=== PATIENT | female | born 1960 | race American Indian/Alaskan Native ===

== ENCOUNTER 2019-04-23 08:33 | Emergency (ER) | payer OTHER ==
[2019-04-23] MEDS ORDERED: DUONEB *Not for PRN Use IH ONE (09:38)
[2019-04-23] MEDS ORDERED: DECADRON PO ONE (09:38)
--- NOTE | 2019-04-23 09:42 | Emergency Department Report ---
HPI - General Chief Complaint: Syncope Time Seen by Provider: 04/23/19 09:31 - HPI HPI: 59-year-old -[place] female presents to the emergency department via EMS from her residential drug/alcohol treatment center after having a witnessed syncopal episode. The patient was eating some breakfast and says that she felt like she was choking on food and then woke up with people standing over her and the ambulance on its way. There is no report of the patient actually choking on her food requiring any type of Heimlich maneuver. Since being in the emergency department, the patient is awake and alert with no significant complaints. She has a past medical history of COPD and hypertension. She is a tobacco smoker. She says that she is 130 days sober from drugs and alcohol. No recent travel or sick contacts at home. She goes to [facility] for primary care. ED Past Medical Hx - Past Medical History Hx Hypertension: Yes Hx Psychiatric Treatment: Yes Hx Asthma: Yes Hx COPD: Yes Additional medical history: Alcoholism,depression - Surgical History Additional Surgical History: tubal ligation/ bunion - Social History Smoking Status: Current Every Day Smoker Substance Use Type: None - Medications Home Medications: Home Medications Medication Instructions Recorded Confirmed Last Taken Type Cyclobenzaprine [Flexeril] 10 mg PO TID PRN #30 tablet 10/16/15 Unknown Rx Ibuprofen [Motrin 600 MG tab] 600 mg PO Q8H PRN #50 tablet 12/12/15 Unknown Rx traMADol [Ultram 50 MG tab] 50 mg PO Q6HR PRN #20 tablet 12/12/15 Unknown Rx Albuterol Sulfate [Albuterol 0.63% 0.63 mg IH Q4HR PRN #2 ml 05/29/16 Unknown Rx NEBS] Albuterol Sulfate [Proair 90 mcg IH Q4HR PRN #2 aer.pow.ba 05/29/16 Unknown Rx Respiclick] Ipratropium [place] [Atrovent Hfa] 12.9 gm IH Q4HR #2 hfa.aer.ad 05/29/16 Unk nown Rx Ipratropium [Atrovent NEB] 0.5 mg IH Q4HR #2 ml 05/29/16 Unknown Rx predniSONE [Deltasone] 40 mg PO QDAY #8 tab 05/29/16 Unknown Rx ED Review of Systems ROS: Stated complaint: PASSED OUT/SOB/NOSE BLEED Other details as noted in HPI Comment: All other systems reviewed and negative Constitutional: denies: chills, fever Eyes: denies: eye pain, vision change ENT: denies: ear pain, throat pain Respiratory: cough (chronic), wheezing Cardiovascular: syncope. denies: chest pain Gastrointestinal: denies: abdominal pain, vomiting Genitourinary: denies: dysuria, discharge Musculoskeletal: denies: back pain, arthralgia Skin: denies: rash, lesions Neurological: denies: headache, numbness Physical Exam - Physical Exam Vital Signs: Vital Signs 04/23/19 08:57 Temperature 98.4 F Pulse Rate 97 H Respiratory 16 Rate Blood Pressure 137/83 [Right] O2 Sat by Pulse 96 Oximetry Physical Exam: GENERAL: The patient is well-developed well-nourished. HENT: Normocephalic. Atraumatic. Patient has moist mucous membranes. EYES: Extraocular motions are intact. Pupils equal reactive to light bilaterally. No nystagmus. NECK: Supple. Trachea is midline. CHEST/LUNGS: Mild expiratory wheezing. No tachypnea or accessory muscle use. There is no respiratory distress noted. HEART/CARDIOVASCULAR: Regular. There is no tachycardia. There is no murmur. ABDOMEN: Abdomen is soft, nontender. Patient has normal bowel sounds. There is no abdominal distention. SKIN: Skin is warm and dry. NEURO: The patient is awake, alert, and oriented. The patient is cooperative. The patient has no focal neurologic deficits. The patient has normal speech. Cranial nerves II through XII grossly intact. No pronator drift. No dysmetria. MUSCULOSKELETAL: There is no tenderness or deformity. There is no limitation range of motion. There is no evidence of acute injury. ED Course Vital Signs 04/23/19 08:57 Temperature 98.4 F Pulse Rate 97 H Respiratory 16 Rate Blood Pressure 137/83 [Right] O2 Sat by Pulse 96 Oximetry ED Medical Decision Making - Lab Data Result diagrams: 04/23/19 09:47 04/23/19 09:47 - EKG Data -: EKG Interpreted by Me EKG shows normal: sinus rhythm, axis, intervals, QRS complexes, ST-T waves Rate: normal - EKG Data When compared to previous EKG there are: previous EKG unavailable Interpretation: normal EKG - Radiology Data Radiology results: report reviewed, image reviewed interpreted by me: Chest x-ray does not show any acute process. There are no pleural effusions, obvious pneumonia and there is no pneumothorax. CT angiography of the chest does not show any pulmonary embolus, dissection, aneurysm, or any other acute process. - Medical Decision Making This patient presents to the emergency department after having a witnessed syncopal episode. Since being in the emergency department, the patient is awake, alert, oriented, in no acute distress, and with no physical complaints. On examination she has no focal, motor or sensory deficits in her cranial nerves are intact. She is a tobacco smoker with a history of COPD and does have some mild expiratory wheezing but no signs of any respiratory distress. She was given a dose of Decadron and a breathing treatment. Her EKG did not show any signs of ST elevation [place], ischemia or dysrhythmia. Chest x-ray did not show any pleural effusions, pneumonia, focal consolidation, pneumothorax, or any other acute process. Her labs were grossly unremarkable except for a slightly elevated and to political d-dimer at 280. Otherwise she had a normal CBC, metabolic panel, troponin, thyroid level, blood alcohol level. She had a CT angiography of the chest that did not show any pulmonary embolism or any other acute process. She was reevaluated multiple times for multiple hours and has remained awake and alert without any further episodes of passing out. Since there was the one syncopal episode, and she does not have any deficits, I did not feel that CT imaging of the head was necessary at this time. Her vital signs and stable throughout her ED course. For all these reasons, the patient appears safe for discharge home at this time. She has been instructed to follow up with primary care and to return to the ER with any worsening of her symptoms or any acute distress. - Differential Diagnosis orthostatic hypotension, vasovagal, TIA, dysrhythmia, PE Critical Care Time: No Critical care attestation.: If time is entered above; I have spent that time in minutes in the direct care of this critically ill patient, excluding procedure time. ED Disposition Clinical Impression: Tobacco use Syncope Qualifiers: Syncope type: unspecified Qualified Code(s): R55 - Syncope and collapse Disposition: DC- TO HOME OR SELFCARE Is pt being admited?: No Condition: Stable Instructions: How to Stop Smoking (ED), Syncope (ED) Additional Instructions: Please follow-up with your primary care physician in the next few days. Return to the emergency department with any further episodes of passing out, worsening of your symptoms, or with any acute distress. Please try and quit smoking. Referrals: [facility] [Outside] - 3-5 Days Time of Disposition: 13:43
[2019-04-23 10:34] LABS: Basophils % (Auto) 0.3 % (0.0-1.8); Eosinophils # (Auto) 0.3 K/mm3 (0.0-0.4); Eosinophils % (Auto) 4.1 % (0.0-4.3); Hematocrit 39.9 % (30.3-42.9); Hemoglobin 13.4 gm/dl (10.1-14.3); Lymphocytes # (Auto) 2.3 K/mm3 (1.2-5.4); Lymphocytes % (Auto) 29.4 % (13.4-35.0); Mean Corpuscular HGB Conc 34 % (30-34); Mean Corpuscular Volume 85 fl (79-97); Monocytes # (Auto) 0.5 K/mm3 (0.0-0.8); Monocytes % (Auto) 5.9 % (0.0-7.3); Platelet Count 278 K/mm3 (140-440); Red Blood Count 4.72 M/mm3 (3.65-5.03)
--- NOTE | 2019-04-23 10:49 | XRay Report ---
CHEST 2 VIEWS INDICATION / CLINICAL INFORMATION: Cough. Syncope COMPARISON: Chest x-ray 05/29/2016 FINDINGS: SUPPORT DEVICES: None. HEART / MEDIASTINUM: No significant abnormality. LUNGS / PLEURA: No significant pulmonary or pleural abnormality. No pneumothorax. ADDITIONAL FINDINGS: No significant additional findings. IMPRESSION: 1. No acute findings. Signer Name: Merrill Dale MD Signed: 04/23/2019 10:45 AM Workstation Name: [id number]
[2019-04-23 10:55] LABS: Alanine Aminotransferase 19 units/L (7-56); Albumin 4.3 g/dL (3.9-5); BUN/Creatinine Ratio 12; Blood Urea Nitrogen 12 mg/dL (7-17); Calcium 9.2 mg/dL (8.4-10.2); Hemolysis Index 4
--- NOTE | 2019-04-23 12:30 | Cat Scan Report ---
CTA CHEST WITH IV CONTRAST INDICATION / CLINICAL INFORMATION: Dizziness, Syncope. TECHNIQUE: Axial CT images were obtained through the chest after injection of IV contrast. 3 plane MIP and/or 3D reconstructions were produced. All CT scans at this location are performed using CT dose reduction f or ALARA by means of automated exposure control. COMPARISON: Same-day chest radiograph FINDINGS: PULMONARY ARTERIES: No pulmonary emboli. THORACIC AORTA: No significant abnormality. HEART: No significant abnormality. CORONARY ARTERIES: No significant calcification. PLEURA: No pleural effusion. No pneumothorax. LYMPH NODES: No significant adenopathy. LUNGS: No acute air space or interstitial disease. ADDITIONAL FINDINGS: None. UPPER ABDOMEN: No acute findings. SKELETAL STRUCTURES: No significant osseous abnormality. IMPRESSION: 1. No CT evidence for pulmonary embolism. 2. No acute findings. Signer Name: Arnold Jackman MD Signed: 04/23/2019 12:25 PM Workstation Name: [id number]
[2019-04-23 13:10] VITALS: BP 138/77
== END 2019-04-23 13:18 | disposition home or self-care (01) ==
LOC: ED 08:33
DX: R55 Syncope and collapse (principal); I10 Essential (primary) hypertension; J44.9 Chronic obstructive pulmonary disease, unspecified; F17.200 Nicotine dependence, unspecified, uncomplicated; F32.9 Major depressive disorder, single episode, unspecified; Z98.51 Tubal ligation status; Z79.899 Other long term (current) drug therapy
CPT/HCPCS: 36415; 71046; 71275; 80053; 84443; 84484; 85025; 85379; 93005; 93010; 94644; 99285; J8540; Q9967; 80320; G0480

== ENCOUNTER 2019-09-14 09:00 | Inpatient (IN) | payer OTHER ==
[2019-09-14] MEDS ORDERED: ALBUTEROL 2.5 MG/3 ML NEBU IH ONE ×3 (14:11→21:52)
[2019-09-14] MEDS ORDERED: IPRATROPIUM 0.02% NEBU 2.5 ML IH ONE ×3 (14:11→21:52)
[2019-09-14] MEDS ORDERED: methylPREDNISolone Sod Succinate 125 MG/2 ML INJ IV ONE (17:26)
[2019-09-14] MEDS ORDERED: IBUPROFEN 800 MG TAB PO ONE (17:27)
--- NOTE | 2019-09-14 17:41 | Event Note ---
ED Screening Note ED Screening Note: 59 YO AA female who comes to ER with SOB. She has a/c COPD and asthma and her SOB has inc over the last 3 days. She also endorses chills and diarrhea. She did not get a flu shot this year but denies muscle pain or myalgia. She has had yellow sputum. PCP [facility] Rx ventolin advair singular zantac wellbutrin serquqel PMH COPD asthma Gerd anxiety/MD she has been clean from alcohol for 9 months. PSH tubal bunion surgery years ago Prior to my exam she had a neb but is still wheezing plan 06/20 neb xray basic labs solumedrol IV repeat Vs then reevaluate
--- NOTE | 2019-09-14 17:55 | XRay Report ---
CHEST 1 VIEW 09/14/2019 5:27 PM INDICATION / CLINICAL INFORMATION: Shortness of breath. COMPARISON: Chest x-ray on 04/23/2019. FINDINGS: SUPPORT DEVICES: None. HEART / MEDIASTINUM: No significant abnormality. LUNGS / PLEURA: No significant pulmonary or pleural abnormality. No pneumothorax. ADDITIONAL FINDINGS: No significant additional findings. IMPRESSION: 1. No acute findings. Signer Name: Shola Mcnamara MD Signed: 09/14/2019 5:50 PM Workstation Name: [id number]
[2019-09-14 18:23] LABS: Basophils % (Auto) 0.2 % (0.0-1.8); Hematocrit 44.4 % (30.3-42.9); Hemoglobin 14.7 gm/dl (10.1-14.3); Lymphocytes # (Auto) 1.7 K/mm3 (1.2-5.4); Lymphocytes % (Auto) 18.1 % (13.4-35.0); Mean Corpuscular HGB Conc 33 % (30-34); Mean Corpuscular Volume 86 fl (79-97); Monocytes # (Auto) 0.7 K/mm3 (0.0-0.8); Monocytes % (Auto) 8.1 % (0.0-7.3); Platelet Count 205 K/mm3 (140-440); Red Blood Count 5.19 M/mm3 (3.65-5.03); Red Cell Distribution Width 16.5 % (13.2-15.2)
[2019-09-14] MEDS ORDERED: ACETAMINOPHEN 325 MG TAB PO ONE (18:34)
--- NOTE | 2019-09-14 18:34 | Emergency Department Report ---
HPI - General Chief Complaint: Dyspnea/Respdistress Time Seen by Provider: 09/14/19 18:11 - HPI HPI: 59-year-old female presents to the emergency department from home with complaint of a three-day history of shortness of breath, wheezing and a mixed dry and productive cough. Patient has a history of COPD but is not oxygen dependent. She also has a history of asthma, GERD, hypertension. She's been using some home inhaler and nebulizer without any relief. 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 Patient presents with a very low-grade fever and says that she has felt feverish over the past few days with some chills. No recent travel or sick contacts at home. She denies any chest pain, lower extremity edema. Patient is a tobacco smoker but says that she quit 3 days ago. ED Past Medical Hx - Past Medical History Previous Medical History?: Yes Hx Hypertension: Yes Hx GERD: Yes Hx Psychiatric Treatment: Yes Hx Asthma: Yes Hx COPD: Yes Additional medical history: Alcoholism,depression - Surgical History Past Surgical History?: Yes Additional Surgical History: tubal ligation/ bunion - Social History Smoking Status: Former Smoker Substance Use Type: None - Medications Home Medications: Home Medications Medication Instructions Recorded Confirmed Last Taken Type Cyclobenzaprine [Flexeril] 10 mg PO TID PRN #30 tablet 10/16/15 09/14/19 Unknown Rx Ibuprofen [Motrin 600 MG tab] 600 mg PO Q8H PRN #50 tablet 12/12/15 09/14/19 Unknown Rx traMADoL [Ultram 50 MG tab] 50 mg PO Q6HR PRN #20 tablet 12/12/15 09/14/19 Unknown Rx Albuterol Sulfate [Albuterol 0.63% 0.63 mg IH Q4HR PRN #2 ml 05/29/16 09/14/19 Unknown Rx NEBS] Albuterol Sulfate [Proair 90 mcg IH Q4HR PRN #2 aer.pow.ba 05/29/16 09/14/19 Unknown Rx Respiclick] Ipratropium [place] [Atrovent Hfa] 12.9 gm IH Q4HR #2 hfa.aer.ad 05/29/16 09/14/19 Unknown Rx Ipratropium [Atrovent NEB] 0.5 mg IH Q4HR #2 ml 05/29/16 09/14/19 Unknown Rx predniSONE [Deltasone] 40 mg PO QDAY #8 tab 05/29/16 09/14/19 Unknown Rx ED Review of Systems ROS: Stated complaint: JAIME Other details as noted in HPI Comment: All other systems reviewed and negative Constitutional: chills, fever Eyes: denies: eye pain, vision change ENT: denies: ear pain, throat pain Respiratory: cough, shortness of breath, wheezing Cardiovascular: denies: chest pain, palpitations Gastrointestinal: denies: abdominal pain, vomiting Genitourinary: denies: urgency, dysuria Musculoskeletal: denies: back pain, arthralgia Skin: denies: rash, lesions Neurological: denies: headache, weakness Physical Exam - Physical Exam Vital Signs: Vital Signs 09/14/19 09/14/19 09:31 09:36 Temperature 100.3 F H Pulse Rate 93 H Respiratory 16 16 Rate Blood Pressure 101/53 O2 Sat by Pulse 88 96 Oximetry Physical Exam: GENERAL: The patient is well-developed well-nourished. HEENT: Normocephalic. Atraumatic. Patient has moist mucous membranes. EYES: Extraocular motions are intact. NECK: Supple. Trachea is midline CHEST/LUNGS: Moderate wheezing throughout the chest. There is a dry cough heard during examination. Tachypnea but no accessory muscle use. No conversational dyspnea. There is no respiratory distress noted. HEART/CARDIOVASCULAR: Regular. There is no tachycardia. ABDOMEN: Abdomen is soft, nontender. Patient has normal bowel sounds. There is no abdominal distention. SKIN: Skin is warm and dry. NEURO: The patient is awake, alert, and oriented. The patient is cooperative. Normal speech. MUSCULOSKELETAL: There is no tenderness or deformity. There is no evidence of acute injury. ED Course Vital Signs 09/14/19 09/14/19 09:31 09:36 Temperature 100.3 F H Pulse Rate 93 H Respiratory 16 16 Rate Blood Pressure 101/53 O2 Sat by Pulse 88 96 Oximetry - ABG Interpretation Ph: [phone] PCO2: 32 PO2: 56 Bicarbonate: 21 Interpretation: other (hypoxemia) ED Medical Decision Making - Lab Data Result diagrams: 09/14/19 17:48 09/14/19 17:48 - Radiology Data Radiology results: image reviewed interpreted by me: Chest x-ray does not show any pneumonia, pneumothorax, focal consolidation, pleural effusions, or any other acute process. - Medical Decision Making This patient presents with a three-day history of some shortness of breath, wheezing and a mixed dry and productive cough. Chest x-ray did not show any pleural effusions, pneumonia, or any other acute process. Blood work shows some acute kidney injury/renal insufficiency. Arterial blood gas show some hypoxemia. The patient does not appear in any respiratory distress but she is not oxygen dependent at home and is requiring supplemental oxygen by nasal cannula. For this reason the patient will be admitted to the hospital for further evaluation and treatment and was accepted for admission by the hospitalist, Dr. Turner. - Differential Diagnosis COPD, Pneumonia, CHF, Asthma Critical Care Time: No Critical care attestation.: If time is entered above; I have spent that time in minutes in the direct care of this critically ill patient, excluding procedure time. ED Disposition Clinical Impression: COPD exacerbation, Hypoxemia, Acute kidney injury Disposition: OP ADMIT IP TO THIS HOSP Is pt being admited?: Yes Condition: Fair Time of Disposition: 21:22
[2019-09-14 18:37] LABS: Albumin 4.2 g/dL (3.9-5)
[2019-09-14] MEDS ORDERED: SODIUM CHLORIDE 0.9% 1000 ML 1,000 ML IV ONE (18:58)
[2019-09-14] MEDS ORDERED: ACETAMINOPHEN 325 MG TAB ONE (21:09)
[2019-09-14] MEDS ORDERED: MAGNESIUM HYDROXIDE (MOM) ORAL LIQD UDC PO PRN (22:09)
[2019-09-14] MEDS ORDERED: ACETAMINOPHEN 325 MG TAB PO PRN (22:09)
[2019-09-14] MEDS ORDERED: ONDANSETRON 4 MG/2 ML INJ IV PRN (22:09)
[2019-09-14] MEDS ORDERED: MORPHINE 2 MG/1 ML INJ IV PRN (22:09)
[2019-09-15] MEDS: methylPREDNISolone Sod Succinate 40 MG/1 ML INJ IV SCH ×5 (00:18→23:48)
--- NOTE | 2019-09-15 03:24 | History and Physical Report ---
History of Present Illness Date of examination: 09/14/19 Date of admission: 09/14/19 21:23 Chief complaint: Shortness of breath Cough History of present illness: 59-year-old female with known history of COPD presenting to the emergency room today complaining of shortness of breath and cough which has been ongoing for about 3 days. She has also had some low-grade fever and chills. She denies any sick contacts and no recent travel. She denies any chest pain and denies any nausea vomiting. She follows up with a private home health travel pt. She indicates her cough has been productive of some greenish to yellowish sputum. Upon arrival in the emergency room a chest x-ray did not reveal any acute abnormality however she was found to be hypoxic. She has not been on oxygen at home. Patient indicates that she quit tobacco use about 3 days ago. Past History Past Medical History: COPD, hypertension Past Surgical History: Other (Bilateral tubal ligation about 35 years ago, surgery on foot for bunion) Social history: smoking (Quit tobacco use 3 days ago) Family history: no significant family history Medications and Allergies Allergies Allergy/AdvReac Type Severity Reaction Status Date / Time No Known Allergies Allergy Verified 12/12/15 13:42 Home Medications Medication Instructions Recorded Confirmed Last Taken Type Cyclobenzaprine [Flexeril] 10 mg PO TID PRN #30 tablet 10/16/15 09/14/19 Unknown Rx Ibuprofen [Motrin 600 MG tab] 600 mg PO Q8H PRN #50 tablet 12/12/15 09/14/19 Unknown Rx traMADoL [Ultram 50 MG tab] 50 mg PO Q6HR PRN #20 tablet 12/12/15 09/14/19 Unknown Rx Albuterol Sulfate [Albuterol 0.63% 0.63 mg IH Q4HR PRN #2 ml 05/29/16 09/14/19 Unknown Rx NEBS] Albuterol Sulfate [Proair 90 mcg IH Q4HR PRN #2 aer.pow.ba 05/29/16 09/14/19 Unknown Rx Respiclick] Ipratropium [place] [Atrovent Hfa] 12.9 gm IH Q4HR #2 hfa.aer.ad 05/29/16 09/14/19 Unknown Rx Ipratropium [Atrovent NEB] 0.5 mg IH Q4HR #2 ml 05/29/16 09/14/19 Unknown Rx predniSONE [Deltasone] 40 mg PO QDAY #8 tab 05/29/16 09/14/19 Unknown Rx Active Meds: Active Medications Acetaminophen (Tylenol) 650 mg PO Q4H PRN PRN Reason: Pain MILD(1-3)/Fever >100.5/INIGUEZ Albuterol/Ipratropium (Duoneb *Not For Prn Use*) 1 ampul IH Q6HRT SHANTI Heparin Sodium (Porcine) (Heparin) 5,000 unit SUB-Q Q8HR SHANTI Levofloxacin/Dextrose (Levaquin 750mg/150ml) 750 mg in 150 mls @ 100 mls/hr IV Q24HR SHANTI; Protocol Magnesium Hydroxide (Milk Of Magnesia) 30 ml PO Q4H PRN PRN Reason: Constipation Methylprednisolone Sodium Succinate (Solu-Medrol) 40 mg IV Q6HR SHANTI Last Admin: 09/15/19 00:18 Dose: 40 mg Documented by: Morphine Sulfate (Morphine) 2 mg IV Q4H PRN PRN Reason: Pain, Moderate (4-6) Ondansetron HCl (Zofran) 4 mg IV Q8H PRN PRN Reason: Nausea And Vomiting Sodium Chloride (Sodium Chloride Flush Syringe 10 Ml) 10 ml IV BID SHANTI Sodium Chloride (Sodium Chloride Flush Syringe 10 Ml) 10 ml IV PRN PRN PRN Reason: LINE FLUSH Review of Systems Constitutional: fever Respiratory: cough with sputum, shortness of breath Exam - Constitutional Vitals: Temp Pulse Resp BP Pulse Ox 98.4 F 94 H 22 138/69 94 09/14/19 21:03 09/14/19 23:00 09/14/19 23:40 09/14/19 23:00 09/14/19 23:40 General appearance: Present: no acute distress - EENT Eyes: Present: PERRL, EOM intact ENT: hearing intact, clear oral mucosa, dentition normal - Neck Neck: Present: supple, normal ROM - Respiratory Respiratory effort: normal Respiratory: bilateral: wheezing - Cardiovascular Rhythm: regular Heart Sounds: Present: S1 & S2 - Extremities Extremities: no ischemia, pulses symmetrical, No edema, Full ROM Peripheral Pulses: within normal limits - Abdominal General gastrointestinal: Present: soft, non-tender, non-distended, normal bowel sounds - Integumentary Integumentary: Present: clear, warm, dry - Musculoskeletal Musculoskeletal: strength equal bilaterally - Psychiatric Psychiatric: appropriate mood/affect, intact judgment & insight, cooperative - Neurologic Neurologic: CNII-XII intact, moves all extremities Results - Labs CBC & Chem 7: 09/15/19 04:53 09/15/19 04:53 Labs: Abnormal lab results 09/14/19 09/14/19 09/14/19 Range/Units 17:48 17:48 19:01 RBC 5.19 H (3.65-5.03) M/mm3 Hgb 14.7 H (10.1-14.3) gm/dl Hct 44.4 H (30.3-42.9) % RDW 16.5 H (13.2-15.2) % M[place]at % (Auto) 8.1 H (0.0-7.3) % Seg Neutrophils % 73.6 H (40.0-70.0) % POC ABG pCO2 32.8 L (35-45) POC ABG pO2 56 L (80-105) Sodium 135 L (137-145) mmol/L Chloride 97.1 L (98-107) mmol/L Carbon Dioxide 19 L (22-30) mmol/L BUN 26 H (7-17) mg/dL Creatinine 1.9 H (0.7-1.2) mg/dL Glucose 101 H (65-100) mg/dL AST 44 H (5-40) units/L Total Protein 8.5 H (6.3-8.2) g/dL Assessment and Plan - Patient Problems (1) COPD exacerbation Current Visit: Yes Status: Acute Plan to address problem: Patient placed on nebulizing treatments and IV steroids. We will keep O2 saturation greater or equal to 92%. We also placed on empiric IV antibiotics for possible underlying bronchitis. She has been placed on Levaquin. (2) Hypoxemia Current Visit: Yes Status: Acute Plan to address problem: Patient was placed on oxygen by nasal cannula will monitor oxygen saturation. We will place a consult to pulmonology for evaluation and recommendation. (3) Hypertension Current Visit: No Status: Acute Plan to address problem: We will continue patient on her routine home medications and monitor vital signs closely. (4) DVT prophylaxis Current Visit: Yes Status: Acute Plan to address problem: Patient placed on subcutaneous heparin. (5) Full code status Current Visit: Yes Status: Acute
[2019-09-15] MEDS: IPRATROPIUM/ALBUTEROL SULFATE 3 ML AMPUL.NEB IH SCH ×4 (03:30→19:58)
[2019-09-15 05:40] LABS: Basophils % (Auto) 0.1 % (0.0-1.8); Hematocrit 40.5 % (30.3-42.9); Hemoglobin 13.6 gm/dl (10.1-14.3); Lymphocytes # (Auto) 0.6 K/mm3 (1.2-5.4); Lymphocytes % (Auto) 8.7 % (13.4-35.0); Mean Corpuscular HGB Conc 34 % (30-34); Mean Corpuscular Volume 85 fl (79-97); Monocytes # (Auto) 0.1 K/mm3 (0.0-0.8); Monocytes % (Auto) 1.9 % (0.0-7.3); Platelet Count 198 K/mm3 (140-440); Red Blood Count 4.77 M/mm3 (3.65-5.03); Red Cell Distribution Width 16.1 % (13.2-15.2)
[2019-09-15] MEDS: HEPARIN 5,000 UNIT/1 ML VIAL SUB-Q SCH ×3 (05:42→22:23)
[2019-09-15 05:55] LABS: INR 0.92 (0.87-1.13)
[2019-09-15 05:56] LABS: Partial Thromboplastin Time 32.7 Sec. (24.2-36.6)
[2019-09-15 06:01] LABS: Calcium 8.6 mg/dL (8.4-10.2)
[2019-09-15] MEDS ORDERED: CYCLOBENZAPRINE 10 MG TAB PO PRN (06:44)
[2019-09-15] MEDS ORDERED: traMADol 50 MG TAB PO PRN (06:44)
[2019-09-15] MEDS: INSULIN LISPRO 100 UNIT/ML SUB-Q SCH ×4 (08:55→22:22)
--- NOTE | 2019-09-15 12:54 | Consultation ---
History of Present Illness Consult date: 09/15/19 Requesting physician: BILL BARRETO Reason for consult: dyspnea History of present illness: 59 yo and long-time smoker, admitted with increased SOB, wheezing, cough with purulent yellow sputum and no hemoptysis, hypoxia. No fevers, chills, chest pain. Active Medications Acetaminophen (Tylenol) 650 mg PO Q4H PRN PRN Reason: Pain MILD(1-3)/Fever >100.5/INIGUEZ Albuterol/Ipratropium (Duoneb *Not For Prn Use*) 1 ampul IH Q6HRT [facility] Last Admin: 09/15/19 07:51 Dose: 1 ampul Documented by: Cyclobenzaprine HCl (Flexeril) 10 mg PO TID PRN PRN Reason: Muscle Spasm Heparin Sodium (Porcine) (Heparin) 5,000 unit SUB-Q Q8HR [facility] Last Admin: 09/15/19 05:42 Dose: 5,000 unit Documented by: Levofloxacin/Dextrose (Levaquin 750mg/150ml) 750 mg in 150 mls @ 100 mls/hr IV Q24HR [facility]; Protocol Insulin Human Lispro (Humalog) 0 unit SUB-Q ACHS [facility]; Protocol Last Admin: 09/15/19 08:55 Dose: 2 unit Documented by: Magnesium Hydroxide (Milk Of Magnesia) 30 ml PO Q4H PRN PRN Reason: Constipation Methylprednisolone Sodium Succinate (Solu-Medrol) 40 mg IV Q6HR [facility] Last Admin: 09/15/19 05:42 Dose: 40 mg Documented by: Morphine Sulfate (Morphine) 2 mg IV Q4H PRN PRN Reason: Pain, Moderate (4-6) Ondansetron HCl (Zofran) 4 mg IV Q8H PRN PRN Reason: Nausea And Vomiting Sodium Chloride (Sodium Chloride Flush Syringe 10 Ml) 10 ml IV BID [facility] Last Admin: 09/15/19 09:29 Dose: 10 ml Documented by: Sodium Chloride (Sodium Chloride Flush Syringe 10 Ml) 10 ml IV PRN PRN PRN Reason: LINE FLUSH Tramadol HCl (Ultram) 50 mg PO Q6H PRN PRN Reason: PAIN Past History Past Medical History: COPD, hypertension Past Surgical History: Other (Bilateral tubal ligation about 35 years ago, surgery on foot for bunion) Social history: smoking (Smoker 40+ years, up to 1ppd, currently 1/2 ppd), full code. denies: alcohol abuse, prescription drug abuse, IV drug use Family history: no significant family history (No pulm issues reported) Medications and Allergies Allergies Allergy/AdvReac Type Severity Reaction Status Date / Time No Known Allergies Allergy Verified 12/12/15 13:42 Home Medications Medication Instructions Recorded Confirmed Last Taken Type Cyclobenzaprine [Flexeril] 10 mg PO TID PRN #30 tablet 10/16/15 09/14/19 Unknown Rx Ibuprofen [Motrin 600 MG tab] 600 mg PO Q8H PRN #50 tablet 12/12/15 09/14/19 Unknown Rx traMADoL [Ultram 50 MG tab] 50 mg PO Q6HR PRN #20 tablet 12/12/15 09/14/19 Unknown Rx Albuterol Sulfate [Albuterol 0.63% 0.63 mg IH Q4HR PRN #2 ml 05/29/16 09/14/19 Unknown Rx NEBS] Albuterol Sulfate [Proair 90 mcg IH Q4HR PRN #2 aer.[email or web address].ba 05/29/16 09/14/19 Unknown Rx Respiclick] Ipratropium [place] [Atrovent Hfa] 12.9 gm IH Q4HR #2 hfa.aer.ad 05/29/16 09/14/19 Unknown Rx Ipratropium [Atrovent NEB] 0.5 mg IH Q4HR #2 ml 05/29/16 09/14/19 Unknown Rx predniSONE [Deltasone] 40 mg PO QDAY #8 tab 05/29/16 09/14/19 Unknown Rx Active Meds: Active Medications Acetaminophen (Tylenol) 650 mg PO Q4H PRN PRN Reason: Pain MILD(1-3)/Fever >100.5/INIGUEZ Albuterol/Ipratropium (Duoneb *Not For Prn Use*) 1 ampul IH Q6HRT [facility] Last Admin: 09/15/19 07:51 Dose: 1 ampul Documented by: Cyclobenzaprine HCl (Flexeril) 10 mg PO TID PRN PRN Reason: Muscle Spasm Heparin Sodium (Porcine) (Heparin) 5,000 unit SUB-Q Q8HR [facility] Last Admin: 09/15/19 05:42 Dose: 5,000 unit Documented by: Levofloxacin/Dextrose (Levaquin 750mg/150ml) 750 mg in 150 mls @ 100 mls/hr IV Q24HR [facility]; Protocol Insulin Human Lispro (Humalog) 0 unit SUB-Q ACHS [facility]; Protocol Last Admin: 09/15/19 08:55 Dose: 2 unit Documented by: Magnesium Hydroxide (Milk Of Magnesia) 30 ml PO Q4H PRN PRN Reason: Constipation Methylprednisolone Sodium Succinate (Solu-Medrol) 40 mg IV Q6HR [facility] Last Admin: 09/15/19 05:42 Dose: 40 mg Documented by: Morphine Sulfate (Morphine) 2 mg IV Q4H PRN PRN Reason: Pain, Moderate (4-6) Ondansetron HCl (Zofran) 4 mg IV Q8H PRN PRN Reason: Nausea And Vomiting Sodium Chloride (Sodium Chloride Flush Syringe 10 Ml) 10 ml IV BID [facility] Last Admin: 09/15/19 09:29 Dose: 10 ml Documented by: Sodium Chloride (Sodium Chloride Flush Syringe 10 Ml) 10 ml IV PRN PRN PRN Reason: LINE FLUSH Tramadol HCl (Ultram) 50 mg PO Q6H PRN PRN Reason: PAIN Review of Systems All systems: negative Physical Examination Vital signs: Vital Signs Temp Pulse Resp BP Pulse Ox 100.3 F H 93 H 16 101/53 88 09/14/19 09:31 09/14/19 09:31 09/14/19 09:31 09/14/19 09:31 09/14/19 09:31 General appearance: no acute distress, alert Eyes: non-icteric ENT: oropharynx moist Neck: supple Effort: normal, other (purulent sputum in emesis basin) Ascultation: Bilateral: wheezes Cardiovascular: regular rate and rhythm (no mrg) Gastrointestinal: normoactive bowel sounds, soft, non-tender, non-distended Integumentary: normal Extremities: no cyanosis, no edema, pink and warm Musculoskeletal: no deformities normal mental status, non-focal exam, pupils equal and round, CN II-XII normal mood appropriate, affect normal Results - Laboratory Findings CBC and BMP: 09/15/19 04:53 09/15/19 04:53 ABG POC ABG pH 7.418 (7.35-7.45) 09/14/19 19:01 POC ABG pCO2 32.8 (35-45) L 09/14/19 19:01 POC ABG pO2 56 (80-105) L 09/14/19 19:01 POC ABG HCO3 21.2 (22-26 mml/L) 09/14/19 19:01 POC ABG Total CO2 22 (23-27mmol/L) 09/14/19 19:01 POC ABG O2 Sat 89 09/14/19 19:01 PT/INR, D-dimer PT 12.5 Sec. (12.2-14.9) 09/15/19 04:53 INR 0.92 (0.87-1.13) 09/15/19 04:53 Abnormal lab findings: Abnormal Labs 09/14/19 09/14/19 09/14/19 17:48 17:48 19:01 RBC 5.19 H Hgb 14.7 H Hct 44.4 H RDW 16.5 H Lymph % (Auto) [place] % (Auto) 8.1 H Lymph # Seg Neutrophils % 73.6 H POC ABG pCO2 32.8 L POC ABG pO2 56 L Sodium 135 L Chloride 97.1 L Carbon Dioxide 19 L BUN 26 H Creatinine 1.9 H Glucose 101 H POC Glucose AST 44 H Total Protein 8.5 H 09/15/19 09/15/19 09/15/19 04:53 04:53 08:36 RBC Hgb Hct RDW 16.1 H Lymph % (Auto) 8.7 L [place] % (Auto) Lymph # 0.6 L Seg Neutrophils % 89.3 H POC ABG pCO2 POC ABG pO2 Sodium Chloride Carbon Dioxide 18 L BUN 23 H Creatinine 1.4 H Glucose 337 H POC Glucose 232 H AST Total Protein 09/15/19 11:38 RBC Hgb Hct RDW Lymph % (Auto) [place] % (Auto) Lymph # Seg Neutrophils % POC ABG pCO2 POC ABG pO2 Sodium Chloride Carbon Dioxide BUN Creatinine Glucose POC Glucose 188 H AST Total Protein - Diagnostic Findings Chest x-ray: report reviewed, image reviewed Assessment and Plan Imp: 1. Acute bronchitis 2. COPD exac. 3. Acute respiratory failure, hypoxia 4. KAMALA 5. Chronic nicotine dependence, cgiarettes 6. Metabolic acidosis Rec: 1. Cont. Levaquin; obtain sputum culture 2. Solumedrol/Duonebs same 3. Gentle IVFs 4. Repeat BMP and check lactate in AM 5. Blood glucose > 300; check HgBa1c 6. Stop smoking 7. Outpatient PFTs Plan of care reviewed with patient, she understands/agrees Thanks for the consult. Will follow with you.
[2019-09-15] MEDS: SODIUM CHLORIDE 0.9% 1000 ML 1,000 ML IV SCH (14:38)
--- NOTE | 2019-09-15 15:38 | Progress Note ---
Assessment and Plan Assessment and plan: Patient is a 59 yo woman with a history of COPD, hypertension and tobacco dependency who presented to [facility] ED with sob and cough. Her pO2 on 2 liters was only 56, hence the admission. * pCXR no acute findings Acute hypoxic respiratory failure, new to o2: continue o2 support and treat the copd AE COPD: treat with neb, abx and iv steriods Tobacco dependency: rehabilitation services counselor on stopping, offered nicotine patch ARF due to vasomotor nephropathy, Cr was 1.9 on admission: treat with ivf now CR 1.4, will repeat Uncontrolled type 2 DM with hyperglycemia complications: treat with insulin, ssi. Obese, bmi 41.1: rehabilitation services counselor on lifestyle modifications DVT ppx: sq heparin History Interval history: Patient was seen and examined. Follow-up on current diagnosis copd. Overnight uneventful as no events directly reported to me. Patient denies any chest pain, nausea/vomiting or severe headaches. Imaging, nursing note, chart, labs and old chart reviewed. Discussed with patient. Hospitalist Physical - Physical exam Narrative exam: Gen: WDWN, NAD, Awake, Alert, Orientated HEENT: NCAT, EOMI, PERRL, OP Clear Neck: supple, no adenopathy, no thyromegaly, no JVD CVS/Heart: RRR, normal S1S2, pulses present bilaterally Chest/Lungs: diminished bs bilateral, Symmetrical chest expansion, good air entry bilaterally GI/Abdomen: soft, NTND, good bowel sounds, no guarding or rebound /Bladder: no suprapubic tenderness, no CVA or paraspinal tenderness Extermity/Skin: no c/c/e, no obvious rash MSK: FROM x 4 Neuro: CN 2-12 grossly intact, no new focal deficits Psych: calm - Constitutional Vitals: Temp Pulse Resp BP Pulse Ox 97.9 F 80 22 143/72 93 09/15/19 12:08 09/15/19 12:08 09/15/19 12:08 09/15/19 12:08 09/15/19 12:08 General appearance: Present: no acute distress Results - Labs CBC & Chem 7: 09/15/19 04:53 09/15/19 04:53 Labs: Laboratory Last Values WBC 6.9 K/mm3 (4.5-11.0) 09/15/19 04:53 RBC 4.77 M/mm3 (3.65-5.03) 09/15/19 04:53 Hgb 13.6 gm/dl (10.1-14.3) 09/15/19 04:53 Hct 40.5 % (30.3-42.9) 09/15/19 04:53 MCV 85 fl (79-97) 09/15/19 04:53 MCH 29 pg (28-32) 09/15/19 04:53 MCHC 34 % (30-34) 09/15/19 04:53 RDW 16.1 % (13.2-15.2) H 09/15/19 04:53 Plt Count 198 K/mm3 (140-440) 09/15/19 04:53 Lymph % (Auto) 8.7 % (13.4-35.0) L 09/15/19 04:53 [place] % (Auto) 1.9 % (0.0-7.3) 09/15/19 04:53 Eos % (Auto) 0.0 % (0.0-4.3) 09/15/19 04:53 Baso % (Auto) 0.1 % (0.0-1.8) 09/15/19 04:53 Lymph # 0.6 K/mm3 (1.2-5.4) L 09/15/19 04:53 [place] # 0.1 K/mm3 (0.0-0.8) 09/15/19 04:53 Eos # 0.0 K/mm3 (0.0-0.4) 09/15/19 04:53 Baso # 0.0 K/mm3 (0.0-0.1) 09/15/19 04:53 Seg Neutrophils % 89.3 % (40.0-70.0) H 09/15/19 04:53 Seg Neutrophils # 6.2 K/mm3 (1.8-7.7) 09/15/19 04:53 PT 12.5 Sec. (12.2-14.9) 09/15/19 04:53 INR 0.92 (0.87-1.13) 09/15/19 04:53 APTT 32.7 Sec. (24.2-36.6) 09/15/19 04:53 POC ABG pH 7.418 (7.35-7.45) 09/14/19 19:01 POC ABG pCO2 32.8 (35-45) L 09/14/19 19:01 POC ABG pO2 56 (80-105) L 09/14/19 19:01 POC ABG HCO3 21.2 (22-26 mml/L) 09/14/19 19:01 POC ABG Total CO2 22 (23-27mmol/L) 09/14/19 19:01 POC ABG O2 Sat 89 09/14/19 19:01 POC ABG Base Excess -3 ((-2) - (+3)mmol/L) 09/14/19 19:01 FiO2 28 % 09/14/19 19:01 Sodium 138 mmol/L (137-145) 09/15/19 04:53 Potassium 4.6 mmol/L (3.6-5.0) 09/15/19 04:53 Chloride 104.2 mmol/L (98-107) 09/15/19 04:53 Carbon Dioxide 18 mmol/L (22-30) L 09/15/19 04:53 Anion Gap 20 mmol/L 09/15/19 04:53 BUN 23 mg/dL (7-17) H 09/15/19 04:53 Creatinine 1.4 mg/dL (0.7-1.2) H 09/15/19 04:53 Estimated GFR 47 ml/min 09/15/19 04:53 BUN/Creatinine Ratio 16 % 09/15/19 04:53 Glucose 337 mg/dL (65-100) H 09/15/19 04:53 POC Glucose 188 (70-105) H 09/15/19 11:38 Calcium 8.6 mg/dL (8.4-10.2) 09/15/19 04:53 Total Bilirubin 0.30 mg/dL (0.1-1.2) 09/14/19 17:48 AST 44 units/L (5-40) H 09/14/19 17:48 ALT 30 units/L (7-56) 09/14/19 17:48 Alkaline Phosphatase 82 units/L (35-129) 09/14/19 17:48 Total Protein 8.5 g/dL (6.3-8.2) H 09/14/19 17:48 Albumin 4.2 g/dL (3.9-5) 09/14/19 17:48 Albumin/Globulin Ratio 1.0 % 09/14/19 17:48 Influenza A (Rapid) Negative (Negative) 09/14/19 21:19 Influenza B (Rapid) Negative (Negative) 09/14/19 21:19 Active Medications - Current Medications Current Medications: Generic Name Dose Route Start Last Admin Trade Name Freq PRN Reason Stop Dose Admin Acetaminophen 650 mg 09/14/19 22:09 Tylenol PO Q4H PRN Pain MILD(1-3)/Fever >100.5/INIGUEZ Albuterol/Ipratropium 1 ampul 09/15/19 02:00 09/15/19 14:36 Duoneb *Not For Prn Use* IH 1 ampul Q6HRT SHANTI Administration Cyclobenzaprine HCl 10 mg 09/15/19 06:44 Flexeril PO TID PRN Muscle Spasm Heparin Sodium (Porcine) 5,000 unit 09/15/19 06:00 09/15/19 14:18 Heparin SUB-Q 5,000 unit Q8HR SHANTI Administration Levofloxacin/Dextrose 750 mg in 150 mls @ 100 mls/hr 09/16/19 10:00 Levaquin 750mg/150ml IV Q24HR [facility]I Protocol Sodium Chloride 1,000 mls @ 42 mls/hr 09/15/19 13:00 09/15/19 14:38 Nacl 0.9% 1000 Ml IV 42 mls/hr DIRECT SHANTI Administration Insulin Human Lispro 0 unit 09/15/19 07:30 09/15/19 14:15 Humalog SUB-Q 1 unit ACHS SH[facility]I Administration Protocol Magnesium Hydroxide 30 ml 09/14/19 22:09 Milk Of Magnesia PO Q4H PRN Constipation Methylprednisolone Sodium Succinate 40 mg 09/15/19 00:00 09/15/19 14:18 Solu-Medrol IV 40 mg Q6HR SHANTI Administration Morphine Sulfate 2 mg 09/14/19 22:09 Morphine IV Q4H PRN Pain, Moderate (4-6) Ondansetron HCl 4 mg 09/14/19 22:09 Zofran IV Q8H PRN Nausea And Vomiting Sodium Chloride 10 ml 09/15/19 10:00 09/15/19 09:29 Sodium Chloride Flush Syringe 10 Ml IV 10 ml BID SHANTI Administration Sodium Chloride 10 ml 09/14/19 22:09 Sodium Chloride Flush Syringe 10 Ml IV PRN PRN LINE FLUSH Tramadol HCl 50 mg 09/15/19 06:44 Ultram PO Q6H PRN PAIN
[2019-09-15] MEDS ORDERED: HEPARIN 5,000 UNIT/1 ML VIAL SUB-Q SCH (15:45)
[2019-09-16] MEDS: IPRATROPIUM/ALBUTEROL SULFATE 3 ML AMPUL.NEB IH SCH ×4 (01:58→20:45)
[2019-09-16] MEDS: methylPREDNISolone Sod Succinate 40 MG/1 ML INJ IV SCH ×3 (05:25→23:30)
[2019-09-16] MEDS: INSULIN LISPRO 100 UNIT/ML SUB-Q SCH ×4 (08:28→22:13)
[2019-09-16] MEDS: HEPARIN 5,000 UNIT/1 ML VIAL SUB-Q SCH ×2 (09:47→22:12)
[2019-09-16 09:56] LABS: BUN/Creatinine Ratio 14; Blood Urea Nitrogen 13 mg/dL (7-17); Calcium 8.6 mg/dL (8.4-10.2); Hemolysis Index 2
[2019-09-16] MEDS: SODIUM CHLORIDE 0.9% 1000 ML 1,000 ML IV SCH (12:19)
--- NOTE | 2019-09-16 14:19 | Progress Note ---
Assessment and Plan mp: 1. Acute bronchitis 2. COPD exac. 3. Acute respiratory failure, hypoxia 4. KAMALA 5. Chronic nicotine dependence, cgiarettes 6. Metabolic acidosis Rec: 1. Cont. Levaquin; sputum culture pending 2. Solumedrol/Duonebs same, taper steroids 3. Gentle IVFs 4. Repeat BMP and check lactate in AM 5. Blood glucose > 300; check HgBa1c 6. Stop smoking 7. Outpatient PFTs Subjective Date of service: 09/16/19 Interval history: Patient reports cough and breathing has improved Objective Vital Signs - 12hr 09/16/19 09/16/19 09/16/19 02:20 04:56 05:19 Temperature 98.3 F 98.3 F Pulse Rate 84 84 Pulse Rate [ 95 H Anterior Bilateral Throughout] Pulse Rate [ Posterior Throughout] Respiratory 20 20 Rate Respiratory 20 Rate [Anterior Bilateral Throughout] Respiratory Rate [Posterior Throughout] Blood Pressure 143/77 Blood Pressure 143/77 [Left] O2 Sat by Pulse 96 96 Oximetry 09/16/19 09/16/19 10:00 12:16 Temperature 98.0 F Pulse Rate 81 Pulse Rate [ 82 Anterior Bilateral Throughout] Pulse Rate [ 82 Posterior Throughout] Respiratory 22 Rate Respiratory 20 Rate [Anterior Bilateral Throughout] Respiratory 20 Rate [Posterior Throughout] Blood Pressure 142/71 Blood Pressure [Left] O2 Sat by Pulse 96 93 Oximetry Constitutional: no acute distress, alert Eyes: non-icteric ENT: oropharynx moist Neck: supple Effort: normal, other (purulent sputum in emesis basin) Ascultation: Bilateral: clear, rhonchi (occasional) Cardiovascular: regular rate and rhythm (no mrg) Gastrointestinal: normoactive bowel sounds, soft, non-tender, non-distended Integumentary: normal Extremities: no cyanosis, no edema, pink and warm Neurologic: normal mental status, non-focal exam, pupils equal and round, CN II- XII normal Psychiatric: mood appropriate, affect normal CBC and BMP: 09/15/19 04:53 09/16/19 09:18 ABG, PT/INR, D-dimer: ABG POC ABG pH 7.418 (7.35-7.45) 09/14/19 19:01 POC ABG pCO2 32.8 (35-45) L 09/14/19 19:01 POC ABG pO2 56 (80-105) L 09/14/19 19:01 POC ABG HCO3 21.2 (22-26 mml/L) 09/14/19 19:01 POC ABG Total CO2 22 (23-27mmol/L) 09/14/19 19:01 POC ABG O2 Sat 89 09/14/19 19:01 PT/INR, D-dimer PT 12.5 Sec. (12.2-14.9) 09/15/19 04:53 INR 0.92 (0.87-1.13) 09/15/19 04:53 Abnormal lab findings: Abnormal Labs 09/14/19 09/14/19 09/14/19 17:48 17:48 19:01 RBC 5.19 H Hgb 14.7 H Hct 44.4 H RDW 16.5 H Lymph % (Auto) [place] % (Auto) 8.1 H Lymph # Seg Neutrophils % 73.6 H POC ABG pCO2 32.8 L POC ABG pO2 56 L Sodium 135 L Chloride 97.1 L Carbon Dioxide 19 L BUN 26 H Creatinine 1.9 H Glucose 101 H POC Glucose Hemoglobin A1c Lactic Acid AST 44 H Total Protein 8.5 H 09/15/19 09/15/19 09/15/19 04:53 04:53 08:36 RBC Hgb Hct RDW 16.1 H Lymph % (Auto) 8.[address] [place] % (Auto) Lymph # 0.6 L Seg Neutrophils % 89.3 H POC ABG pCO2 POC ABG pO2 Sodium Chloride Carbon Dioxide 18 L BUN 23 H Creatinine 1.4 H Glucose 337 H POC Glucose 232 H Hemoglobin A1c Lactic Acid AST Total Protein 09/15/19 09/15/19 09/15/19 11:38 16:39 21:24 RBC Hgb Hct RDW Lymph % (Auto) [place] % (Auto) Lymph # Seg Neutrophils % POC ABG pCO2 POC ABG pO2 Sodium Chloride Carbon Dioxide BUN Creatinine Glucose POC Glucose 188 H 196 H 232 H Hemoglobin A1c Lactic Acid AST Total Protein 09/16/19 09/16/19 09/16/19 07:39 09:18 09:18 RBC Hgb Hct RDW Lymph % (Auto) [place] % (Auto) Lymph # Seg Neutrophils % POC ABG pCO2 POC ABG pO2 Sodium Chloride Carbon Dioxide 20 L BUN Creatinine Glucose 226 H POC Glucose 169 H Hemoglobin A1c 6.1 H Lactic Acid AST Total Protein 09/16/19 09/16/19 09:18 12:28 RBC Hgb Hct RDW Lymph % (Auto) [place] % (Auto) Lymph # Seg Neutrophils % POC ABG pCO2 POC ABG pO2 Sodium Chloride Carbon Dioxide BUN Creatinine Glucose POC Glucose 183 H Hemoglobin A1c Lactic Acid 2.90 H* AST Total Protein Chest x-ray: image reviewed (no acute finding)
--- NOTE | 2019-09-16 15:29 | Progress Note ---
Assessment and Plan Assessment and plan: Patient is a 59 yo woman with a history of COPD, hypertension and tobacco dependency who presented to [facility] ED with sob and cough. Her pO2 on 2 liters was only 56, hence the admission. * pCXR no acute findings Acute hypoxic respiratory failure, new to o2: continue o2 support and treat the copd AE COPD: treat with neb, abx and iv steriods Tobacco dependency: diet counselor on stopping, offered nicotine patch ARF due to vasomotor nephropathy, Cr was 1.9 on admission: treat with ivf now CR 1.4, will repeat Uncontrolled type 2 DM with hyperglycemia complications: treat with insulin, ssi. Obese, bmi 41.1: diet counselor on lifestyle modifications DVT ppx: sq heparin Down to 2.5 liters of O2; I turned off o2, and if above 90%, d/w RT, will discharge if stays off. History Interval history: Patient was seen and examined. Follow-up on current diagnosis copd. Overnight uneventful as no events directly reported to me. Patient denies any chest pain, nausea/vomiting or severe headaches. Imaging, nursing note, chart, labs and old chart reviewed. Discussed with patient. Hospitalist Physical - Physical exam Narrative exam: Gen: WDWN, NAD, Awake, Alert, Orientated HEENT: NCAT, EOMI, PERRL, OP Clear Neck: supple, no adenopathy, no thyromegaly, no JVD CVS/Heart: RRR, normal S1S2, pulses present bilaterally Chest/Lungs: diminished bs bilateral, Symmetrical chest expansion, good air entry bilaterally GI/Abdomen: soft, NTND, good bowel sounds, no guarding or rebound /Bladder: no suprapubic tenderness, no CVA or paraspinal tenderness Extermity/Skin: no c/c/e, no obvious rash MSK: FROM x 4 Neuro: CN 2-12 grossly intact, no new focal deficits Psych: calm - Constitutional Vitals: Temp Pulse Resp BP Pulse Ox 98.0 F 81 22 142/71 93 09/16/19 12:16 09/16/19 12:16 09/16/19 12:16 09/16/19 12:16 09/16/19 12:16 General appearance: Present: no acute distress Results - Labs CBC & Chem 7: 09/15/19 04:53 09/16/19 09:18 Labs: Laboratory Last Values WBC 6.9 K/mm3 (4.5-11.0) 09/15/19 04:53 RBC 4.77 M/mm3 (3.65-5.03) 09/15/19 04:53 Hgb 13.6 gm/dl (10.1-14.3) 09/15/19 04:53 Hct 40.5 % (30.3-42.9) 09/15/19 04:53 MCV 85 fl (79-97) 09/15/19 04:53 MCH 29 pg (28-32) 09/15/19 04:53 MCHC 34 % (30-34) 09/15/19 04:53 RDW 16.1 % (13.2-15.2) H 09/15/19 04:53 Plt Count 198 K/mm3 (140-440) 09/15/19 04:53 Lymph % (Auto) 8.7 % (13.4-35.0) L 09/15/19 04:53 [place] % (Auto) 1.9 % (0.0-7.3) 09/15/19 04:53 Eos % (Auto) 0.0 % (0.0-4.3) 09/15/19 04:53 Baso % (Auto) 0.1 % (0.0-1.8) 09/15/19 04:53 Lymph # 0.6 K/mm3 (1.2-5.4) L 09/15/19 04:53 [place] # 0.1 K/mm3 (0.0-0.8) 09/15/19 04:53 Eos # 0.0 K/mm3 (0.0-0.4) 09/15/19 04:53 Baso # 0.0 K/mm3 (0.0-0.1) 09/15/19 04:53 Seg Neutrophils % 89.3 % (40.0-70.0) H 09/15/19 04:53 Seg Neutrophils # 6.2 K/mm3 (1.8-7.7) 09/15/19 04:53 PT 12.5 Sec. (12.2-14.9) 09/15/19 04:53 INR 0.92 (0.87-1.13) 09/15/19 04:53 APTT 32.7 Sec. (24.2-36.6) 09/15/19 04:53 POC ABG pH 7.418 (7.35-7.45) 09/14/19 19:01 POC ABG pCO2 32.8 (35-45) L 09/14/19 19:01 POC ABG pO2 56 (80-105) L 09/14/19 19:01 POC ABG HCO3 21.2 (22-26 mml/L) 09/14/19 19:01 POC ABG Total CO2 22 (23-27mmol/L) 09/14/19 19:01 POC ABG O2 Sat 89 09/14/19 19:01 POC ABG Base Excess -3 ((-2) - (+3)mmol/L) 09/14/19 19:01 FiO2 28 % 09/14/19 19:01 Sodium 138 mmol/L (137-145) 09/16/19 09:18 Potassium 4.5 mmol/L (3.6-5.0) 09/16/19 09:18 Chloride 104.4 mmol/L (98-107) 09/16/19 09:18 Carbon Dioxide 20 mmol/L (22-30) L 09/16/19 09:18 Anion Gap 18 mmol/L 09/16/19 09:18 BUN 13 mg/dL (7-17) 09/16/19 09:18 Creatinine 0.9 mg/dL (0.7-1.2) 09/16/19 09:18 Estimated GFR > 60 ml/min 09/16/19 09:18 BUN/Creatinine Ratio 14 % 09/16/19 09:18 Glucose 226 mg/dL (65-100) H 09/16/19 09:18 POC Glucose 183 (70-105) H 09/16/19 12:28 Hemoglobin A1c 6.1 % (4-6) H 09/16/19 09:18 Lactic Acid 2.90 mmol/L (0.7-2.0) H* 09/16/19 09:18 Calcium 8.6 mg/dL (8.4-10.2) 09/16/19 09:18 Total Bilirubin 0.30 mg/dL (0.1-1.2) 09/14/19 17:48 AST 44 units/L (5-40) H 09/14/19 17:48 ALT 30 units/L (7-56) 09/14/19 17:48 Alkaline Phosphatase 82 units/L (35-129) 09/14/19 17:48 Total Protein 8.5 g/dL (6.3-8.2) H 09/14/19 17:48 Albumin 4.2 g/dL (3.9-5) 09/14/19 17:48 Albumin/Globulin Ratio 1.0 % 09/14/19 17:48 Influenza A (Rapid) Negative (Negative) 09/14/19 21:19 Influenza B (Rapid) Negative (Negative) 09/14/19 21:19 Active Medications - Current Medications Current Medications: Generic Name Dose Route Start Last Admin Trade Name Freq PRN Reason Stop Dose Admin Acetaminophen 650 mg 09/14/19 22:09 Tylenol PO Q4H PRN Pain MILD(1-3)/Fever >100.5/INIGUEZ Albuterol/Ipratropium 1 ampul 09/15/19 02:00 09/16/19 09:59 Duoneb *Not For Prn Use* IH 1 ampul Q6HRT SHANTI Administration Cyclobenzaprine HCl 10 mg 09/15/19 06:44 Flexeril PO TID PRN Muscle Spasm Heparin Sodium (Porcine) 5,000 unit 09/15/19 22:00 09/16/19 09:47 Heparin SUB-Q 5,000 unit Q12H SHANTI Administration Levofloxacin/Dextrose 750 mg in 150 mls @ 100 mls/hr 09/16/19 10:00 09/16/19 09:47 Levaquin 750mg/150ml IV 100 mls/hr Q24HR SHANTI Administration Protocol Sodium Chloride 1,000 mls @ 42 mls/hr 09/15/19 13:00 09/16/19 12:19 Nacl 0.9% 1000 Ml IV 42 mls/hr DIRECT SHANTI Administration Insulin Human Lispro 0 unit 09/15/19 07:30 09/16/19 12:25 Humalog SUB-Q 1 unit ACHS SHANTI Administration Protocol Magnesium Hydroxide 30 ml 09/14/19 22:09 Milk Of Magnesia PO Q4H PRN Constipation Methylprednisolone Sodium Succinate 40 mg 09/17/19 00:00 Solu-Medrol IV Q12H SHANTI Morphine Sulfate 2 mg 09/14/19 22:09 Morphine IV Q4H PRN Pain, Moderate (4-6) Ondansetron HCl 4 mg 09/14/19 22:09 Zofran IV Q8H PRN Nausea And Vomiting Sodium Chloride 10 ml 09/15/19 10:00 09/16/19 09:47 Sodium Chloride Flush Syringe 10 Ml IV 10 ml BID SHANTI Administration Sodium Chloride 10 ml 09/14/19 22:09 Sodium Chloride Flush Syringe 10 Ml IV PRN PRN LINE FLUSH Tramadol HCl 50 mg 09/15/19 06:44 Ultram PO Q6H PRN PAIN
[2019-09-17] MEDS ORDERED: QUEtiapine 100 MG TAB PO ONE (00:25)
[2019-09-17] MEDS ORDERED: QUEtiapine 200 MG TAB PO ONE (01:00)
[2019-09-17] MEDS: IPRATROPIUM/ALBUTEROL SULFATE 3 ML AMPUL.NEB IH SCH ×3 (02:09→14:18)
[2019-09-17] MEDS: INSULIN LISPRO 100 UNIT/ML SUB-Q SCH ×2 (09:08→14:10)
[2019-09-17] MEDS: HEPARIN 5,000 UNIT/1 ML VIAL SUB-Q SCH (10:58)
--- NOTE | 2019-09-17 11:01 | Discharge Summary ---
Providers - Providers Date of Admission: 09/15/19 15:00 Date of discharge: 09/17/19 Attending physician: BILL BARRETO 09/14/19 22:09 Consult to Physician [CONS] Routine Comment: Consulting Provider: ZANE ALDANA Physician Instructions: Reason For Exam: COPD EXACERBATION WITH HYPOXEMIA Primary care physician: MISSILE MECHANIC Hospitalization Condition: Stable Hospital course: Patient is a 59 yo woman with a history of COPD, hypertension and tobacco dependency who presented to [facility] ED with sob and cough. Her pO2 on 2 liters was only 56, hence the admission. * pCXR no acute findings Discharge Diagnoses: Acute hypoxic respiratory failure, treated with o2 support, now weaned off successfully and treat the copd AE COPD: treat with neb, abx and iv steriods Tobacco dependency: corporate counselor on stopping, offered nicotine patch ARF due to vasomotor nephropathy, Cr was 1.9 on admission: treat with ivf now CR 1.4, will repeat Uncontrolled type 2 DM with hyperglycemia complications: treat with insulin, ssi. Obese, bmi 41.1: corporate counselor on lifestyle modifications DVT ppx: sq heparin Disposition: DC- TO HOME OR SELFCARE Time spent for discharge: 32 minutes Core Measure Documentation - Palliative Care Palliative Care/ Comfort Measures: Not Applicable - Core Measures Any of the following diagnoses?: none - VTE Discharge Requirements Deep Vein Thrombosis/Pulmonary Embolism Present on Admission: No Has pt received <5 days of overlap therapy or INR<2.0: No Anticoagulant overlap therapy prescribed at discharge: No Contraindication No Overlap Therapy order at DC: Not Indicated Exam - Physical Exam Narrative exam: Gen: WDWN, NAD, Awake, Alert, Orientated HEENT: NCAT, EOMI, PERRL, OP Clear Neck: supple, no adenopathy, no thyromegaly, no JVD CVS/Heart: RRR, normal S1S2, pulses present bilaterally Chest/Lungs: improved diminished bs bilateral, Symmetrical chest expansion, good air entry bilaterally GI/Abdomen: soft, NTND, good bowel sounds, no guarding or rebound /Bladder: no suprapubic tenderness, no CVA or paraspinal tenderness Extermity/Skin: no c/c/e, no obvious rash MSK: FROM x 4 Neuro: CN 2-12 grossly intact, no new focal deficits Psych: calm - Constitutional Vitals: Temp Pulse Resp BP Pulse Ox 97.5 F L 88 18 145/85 97 12/29/19 06:04 09/17/19 08:00 09/17/19 08:00 09/17/19 06:04 09/17/19 08:18 Plan Activity: other (no strenous activity unless cleared by PCP) Diet: diabetic Special Instructions: record blood sugar diary Follow up with: PRIMARY MD WESTON [Primary Care Provider] - 3-5 Days ZANE ALDANA MD [Staff Physician] - 7 Days Prescriptions: cefUROXime [Ceftin] 2 tab PO BID #20 tablet predniSONE [Deltasone] 1 dose PO DAILY #36 tab Albuterol Sulfate [Proair Respiclick] 90 mcg IH Q4HR PRN #2 aer.pow.ba PRN Reason: Wheezing
[2019-09-17 11:58] VITALS: BP 131/71
[2019-09-17] MEDS: methylPREDNISolone Sod Succinate 40 MG/1 ML INJ IV SCH (14:11)
--- NOTE | 2019-09-17 14:20 | Progress Note ---
Assessment and Plan mp: 1. Acute bronchitis 2. COPD exac. 3. Acute respiratory failure, hypoxia 4. KAMALA 5. Chronic nicotine dependence, cgiarettes 6. Metabolic acidosis Rec: Agree with discharge. Follow-up in the office Subjective Date of service: 09/17/19 Interval history: Doing well breathing has improved, for discharge today Objective Vital Signs - 12hr 09/17/19 09/17/19 09/17/19 06:04 08:00 08:18 Temperature 97.5 F L Pulse Rate 81 Pulse Rate [ 88 Anterior Bilateral Throughout] Respiratory 18 Rate Respiratory 18 Rate [Anterior Bilateral Throughout] Blood Pressure 145/85 O2 Sat by Pulse 94 97 Oximetry 09/17/19 11:13 Temperature 98.0 F Pulse Rate 84 Pulse Rate [ Anterior Bilateral Throughout] Respiratory 22 Rate Respiratory Rate [Anterior Bilateral Throughout] Blood Pressure 131/71 O2 Sat by Pulse 95 Oximetry Constitutional: no acute distress, alert Eyes: non-icteric ENT: oropharynx moist Neck: supple Effort: normal, other (purulent sputum in emesis basin) Ascultation: Bilateral: clear, wheezes, rhonchi (occasional) Cardiovascular: regular rate and rhythm (no mrg) Gastrointestinal: normoactive bowel sounds, soft, non-tender, non-distended Integumentary: normal Extremities: no cyanosis, no edema, pink and warm Neurologic: normal mental status, non-focal exam, pupils equal and round, CN II- XII normal Psychiatric: mood appropriate, affect normal CBC and BMP: 09/15/19 04:53 09/16/19 09:18 ABG, PT/INR, D-dimer: ABG POC ABG pH 7.418 (7.35-7.45) 09/14/19 19:01 POC ABG pCO2 32.8 (35-45) L 09/14/19 19:01 POC ABG pO2 56 (80-105) L 09/14/19 19:01 POC ABG HCO3 21.2 (22-26 mml/L) 09/14/19 19:01 POC ABG Total CO2 22 (23-27mmol/L) 09/14/19 19:01 POC ABG O2 Sat 89 09/14/19 19:01 PT/INR, D-dimer PT 12.5 Sec. (12.2-14.9) 09/15/19 04:53 INR 0.92 (0.87-1.13) 09/15/19 04:53 Abnormal lab findings: Abnormal Labs 09/14/19 09/14/19 09/14/19 17:48 17:48 19:01 RBC 5.19 H Hgb 14.7 H Hct 44.4 H RDW 16.5 H Lymph % (Auto) Woods % (Auto) 8.1 H Lymph # Seg Neutrophils % 73.6 H POC ABG pCO2 32.8 L POC ABG pO2 56 L Sodium 135 L Chloride 97.1 L Carbon Dioxide 19 L BUN 26 H Creatinine 1.9 H Glucose 101 H POC Glucose Hemoglobin A1c Lactic Acid AST 44 H Total Protein 8.5 H 09/15/19 09/15/19 09/15/19 04:53 04:53 08:36 RBC Hgb Hct RDW 16.1 H Lymph % (Auto) 8.7 L Woods % (Auto) Lymph # 0.6 L Seg Neutrophils % 89.3 H POC ABG pCO2 POC ABG pO2 Sodium Chloride Carbon Dioxide 18 L BUN 23 H Creatinine 1.4 H Glucose 337 H POC Glucose 232 H Hemoglobin A1c Lactic Acid AST Total Protein 09/15/19 09/15/19 09/15/19 11:38 16:39 21:24 RBC Hgb Hct RDW Lymph % (Auto) Woods % (Auto) Lymph # Seg Neutrophils % POC ABG pCO2 POC ABG pO2 Sodium Chloride Carbon Dioxide BUN Creatinine Glucose POC Glucose 188 H 196 H 232 H Hemoglobin A1c Lactic Acid AST Total Protein 09/16/19 09/16/19 09/16/19 07:39 09:18 09:18 RBC Hgb Hct RDW Lymph % (Auto) Woods % (Auto) Lymph # Seg Neutrophils % POC ABG pCO2 POC ABG pO2 Sodium Chloride Carbon Dioxide 20 L BUN Creatinine Glucose 226 H POC Glucose 169 H Hemoglobin A1c 6.1 H Lactic Acid AST Total Protein 09/16/19 09/16/19 09/16/19 09:18 12:28 15:53 RBC Hgb Hct RDW Lymph % (Auto) Woods % (Auto) Lymph # Seg Neutrophils % POC ABG pCO2 POC ABG pO2 Sodium Chloride Carbon Dioxide BUN Creatinine Glucose POC Glucose 183 H Hemoglobin A1c Lactic Acid 2.90 H* 2.60 H* AST Total Protein 12/28/19 12/28/19 12/28/19 16:18 19:23 22:06 RBC Hgb Hct RDW Lymph % (Auto) Woods % (Auto) Lymph # Seg Neutrophils % POC ABG pCO2 POC ABG pO2 Sodium Chloride Carbon Dioxide BUN Creatinine Glucose POC Glucose 163 H 135 H Hemoglobin A1c Lactic Acid 2.40 H* AST Total Protein 09/17/19 09/17/19 08:06 11:25 RBC Hgb Hct RDW Lymph % (Auto) Woods % (Auto) Lymph # Seg Neutrophils % POC ABG pCO2 POC ABG pO2 Sodium Chloride Carbon Dioxide BUN Creatinine Glucose POC Glucose 173 H 178 H Hemoglobin A1c Lactic Acid AST Total Protein
[2019-09-17] MEDS ORDERED: FLU VACC QUAD 2019-20 (3 YR UP)/PF 60 MCG/0.5 ML SYRINGE IM ONE (16:06)
== END 2019-09-17 17:30 | disposition home or self-care (01) | DRG 189 ==
LOC: ED 09:00 → 3A 21:23 → OBSVTOIN 09-15 15:00
PROVIDERS: ADMIT Internal Medicine Geriatric Medicine; ATTEND Internal Medicine
PROC: 4A033R1 Measurement of Arterial Saturation, Peripheral, Percutaneous Approach (ICD-10-PCS; principal; 2019-09-14)
DX: J96.01 Acute respiratory failure with hypoxia (principal); N17.0 Acute kidney failure with tubular necrosis; J44.1 Chronic obstructive pulmonary disease with (acute) exacerbation; E87.2 Acidosis; Z68.41 Body mass index [BMI] 40.0-44.9, adult; K21.9 Gastro-esophageal reflux disease without esophagitis; F41.9 Anxiety disorder, unspecified; I10 Essential (primary) hypertension; J20.9 Acute bronchitis, unspecified; F17.210 Nicotine dependence, cigarettes, uncomplicated; E11.65 Type 2 diabetes mellitus with hyperglycemia; E66.9 Obesity, unspecified; Z98.51 Tubal ligation status
CPT/HCPCS: 36415; 71045; 80048; 80053; 82140; 82803; 82962; 83036; 85025; 85610; 85730; 87070; 87205; 87400; 90686; 93005; 93010; 94640; 94644; 94760; 96374; 99406; G0378; J1644; J1815; J1956; J2920; J2930; J7030

== ENCOUNTER 2020-11-26 12:42 | Inpatient (IN) | payer OTHER ==
--- NOTE | 2020-11-26 13:07 | Event Note ---
ED Screening Note Date of service: 11/26/20 Time: 13:06 ED Screening Note: 60-year-old female with a past medical history of COPD, not currently on home O2, hypertension and tobacco abuse presents to the ER with complaints of shortness of breath, generalized body aches, cough, chills, wheezing, and loss of sense of taste and smell. She states her symptoms started yesterday. She has not had a outpatient COVID-19 test. This initial assessment/diagnostic orders/clinical plan/treatment(s) is/are subject to change based on patients health status, clinical progression and re- assessment by fellow clinical providers in the ED. Further treatment and workup at subsequent clinical providers discretion. Patient/guardian urged not to elope from the ED as their condition may be serious if not clinically assessed and managed. Initial orders include: Dyspnea order set work-up
--- NOTE | 2020-11-26 13:32 | XRay Report ---
CHEST 1 VIEW INDICATION: Dyspnea. COMPARISON: 09/14/2019 FINDINGS: Support devices: None. Heart: Within normal limits. Lungs/Pleura: No acute air space or interstitial disease. No pneumothorax. Additional findings: None. IMPRESSION: No acute findings. Signer Name: Alton Ludwig Jr, MD Signed: 11/26/2020 1:27 PM Workstation Name: [id number]
[2020-11-26 14:48] LABS: Basophils % (Auto) 0.4 % (0.0-1.8); Eosinophils # (Auto) 0.2 K/mm3 (0.0-0.4); Eosinophils % (Auto) 2.5 % (0.0-4.3); Hematocrit 46.9 % (30.3-42.9); Hemoglobin 16.1 gm/dl (10.1-14.3); Lymphocytes # (Auto) 1.6 K/mm3 (1.2-5.4); Lymphocytes % (Auto) 18.3 % (13.4-35.0); Mean Corpuscular HGB Conc 34 % (30-34); Mean Corpuscular Volume 91 fl (79-97); Monocytes # (Auto) 1.1 K/mm3 (0.0-0.8); Monocytes % (Auto) 11.7 % (0.0-7.3); Platelet Count 207 K/mm3 (140-440); Red Blood Count 5.15 M/mm3 (3.65-5.03); Red Cell Distribution Width 14.7 % (13.2-15.2)
[2020-11-26 15:17] LABS: Alanine Aminotransferase 82 units/L (7-56); Albumin 4.6 g/dL (3.9-5); BUN/Creatinine Ratio 11; Blood Urea Nitrogen 10 mg/dL (7-17); Calcium 9.9 mg/dL (8.4-10.2); Hemolysis Index 15
[2020-11-26] MEDS ORDERED: dexAMETHasone 4 MG/ML VIAL IV ONE (21:26)
[2020-11-26] MEDS ORDERED: ALBUTEROL 2.5 MG/3 ML NEBU IH ONE (21:26)
[2020-11-26] MEDS ORDERED: IPRATROPIUM 0.02% NEBU 2.5 ML IH ONE (21:26)
--- NOTE | 2020-11-26 21:31 | Emergency Department Report ---
ED Shortness of Breath HPI - General Chief Complaint: Dyspnea/Respdistress Stated Complaint: DIFF BREATHING Time Seen by Provider: 11/26/20 13:04 Source: patient Mode of arrival: Ambulatory Limitations: No Limitations - History of Present Illness Initial Comments: Patient is 60 years old female with history of COPD, asthma and hypertension. Patient presented to the ER complaining of chills, of shortness of breath, loss of taste and smell since yesterday. Patient denied any chest pain. Patient stated that she has been taking her albuterol with no improvement. Patient denied any abdominal pain, nausea or vomiting. MD Complaint: shortness of breath, cough -: Sudden Severity: moderate Known History Of: COPD Context: recent URI - Related Data Home Medications Medication Instructions Recorded Confirmed Last Taken Quetiapine Fumarate [SEROquel] 300 mg PO HS 09/16/19 09/16/19 Unknown Previous Rx's Medication Instructions Recorded Last Taken Type Cyclobenzaprine [Flexeril 10 MG 10 mg PO TID PRN #30 tablet 10/16/15 Unknown Rx TAB] traMADoL [Ultram 50 MG tab] 50 mg PO Q6HR PRN #20 tablet 12/12/15 Unknown Rx Albuterol Sulfate [Albuterol 0.63% 0.63 mg IH Q4HR PRN #2 ml 05/29/16 Unknown Rx NEBS] Ipratropium [place] [Atrovent Hfa] 12.9 gm IH Q4HR #2 hfa.aer.ad 05/29/16 Unknown Rx Acetaminophen [Acetaminophen TAB] 2 tab PO Q4H PRN #15 tablet 09/17/19 Unknown Rx Albuterol Sulfate [Proair 90 mcg IH Q4HR PRN #2 aer.pow.ba 09/17/19 Unknown Rx Respiclick] Ipratropium [Atrovent NEB] 0.5 mg IH Q4HR PRN #2 ml 09/17/19 Unknown Rx Lispro Insulin [HumaLOG] 0 unit SUB-Q ACHS units 09/17/19 Unknown Rx cefUROXime [Ceftin] 2 tab PO BID #20 tablet 09/17/19 Unknown Rx predniSONE 1 dose PO DAILY #36 tab 09/17/19 Unknown Rx Allergies Allergy/AdvReac Type Severity Reaction Status Date / Time No Known Allergies Allergy Verified 12/12/15 13:42 ED Review of Systems ROS: Stated complaint: DIFF BREATHING Other details as noted in HPI Comment: All other systems reviewed and negative Constitutional: chills. denies: fever Respiratory: cough, shortness of breath, SOB with exertion, wheezing Cardiovascular: denies: chest pain, palpitations Gastrointestinal: denies: abdominal pain, nausea, vomiting Neurological: denies: headache, weakness ED Past Medical Hx - Past Medical History Previous Medical History?: Yes Hx Hypertension: Yes Hx GERD: Yes Hx Sickle Cell Disease: No Hx Psychiatric Treatment: Yes Hx Asthma: Yes Hx COPD: Yes Hx HIV: No Additional medical history: Alcoholism,depression - Surgical History Past Surgical History?: Yes Additional Surgical History: tubal ligation/ bunion - Social History Smoking Status: Current Every Day Smoker Substance Use Type: Alcohol, Cocaine - Medications Home Medications: Home Medications Medication Instructions Recorded Confirmed Last Taken Type Cyclobenzaprine [Flexeril 10 MG 10 mg PO TID PRN #30 tablet 10/16/15 09/14/19 Unknown Rx TAB] traMADoL [Ultram 50 MG tab] 50 mg PO Q6HR PRN #20 tablet 12/12/15 09/14/19 Unknown Rx Albuterol Sulfate [Albuterol 0.63% 0.63 mg IH Q4HR PRN #2 ml 05/29/16 09/14/19 Unknown Rx NEBS] Ipratropium [place] [Atrovent Hfa] 12.9 gm IH Q4HR #2 hfa.aer.ad 05/29/16 09/14/19 Unknown Rx Quetiapine Fumarate [SEROquel] 300 mg PO HS 09/16/19 09/16/19 Unknown History Acetaminophen [Acetaminophen TAB] 2 tab PO Q4H PRN #15 tablet 09/17/19 Unknown Rx Albuterol Sulfate [Proair 90 mcg IH Q4HR PRN #2 aer.pow.ba 09/17/19 Unknown Rx Respiclick] Ipratropium [Atrovent NEB] 0.5 mg IH Q4HR PRN #2 ml 09/17/19 09/14/19 Unknown Rx Lispro Insulin [HumaLOG] 0 unit SUB-Q ACHS units 09/17/19 Unknown Rx cefUROXime [Ceftin] 2 tab PO BID #20 tablet 09/17/19 Unknown Rx predniSONE 1 dose PO DAILY #36 tab 09/17/19 Unknown Rx ED Physical Exam - General Limitations: No Limitations General appearance: alert, anxious, in distress (Moderate respiratory distress.) - ENT ENT exam: Present: normal exam, normal orophraynx, mucous membranes moist - Neck Neck exam: Present: normal inspection, full ROM. Absent: tenderness, meningismus - Respiratory Respiratory exam: Present: respiratory distress, wheezes, rales, rhonchi, accessory muscle use, decreased breath sounds - Cardiovascular Cardiovascular Exam: Present: regular rate, normal rhythm, normal heart sounds - GI/Abdominal GI/Abdominal exam: Present: soft, normal bowel sounds. Absent: distended, tenderness, guarding, rebound, rigid, organomegaly, mass, bruit, pulsatile mass, hernia - Extremities Exam Extremities exam: Present: normal inspection, full ROM, normal capillary refill. Absent: pedal edema, calf tenderness - Back Exam Back exam: Present: normal inspection, full ROM. Absent: CVA tenderness (R), CVA tenderness (L) - Neurological Exam Neurological exam: Present: alert, oriented X3, CN II-XII intact, normal gait, reflexes normal. Absent: motor sensory deficit - Psychiatric Psychiatric exam: Present: normal mood - Skin Skin exam: Present: warm, intact, normal color ED Course Vital Signs 11/26/20 11/26/20 11/26/20 12:58 21:48 21:51 Temperature 98.3 F Pulse Rate 98 H 102 H 100 H Respiratory 24 17 18 Rate Blood Pressure 164/92 Blood Pressure 135/82 [Left] O2 Sat by Pulse 95 95 97 Oximetry 11/26/20 22:00 Temperature Pulse Rate 101 H Respiratory 18 Rate Blood Pressure 135/82 Blood Pressure [Left] O2 Sat by Pulse 95 Oximetry ED Medical Decision Making - Lab Data Result diagrams: 11/26/20 13:45 11/26/20 13:45 - EKG Data -: EKG Interpreted by Nd EKG shows normal: sinus rhythm Rate: normal - EKG Data Interpretation: no acute changes - Radiology Data Radiology results: report reviewed - Medical Decision Making Patient is 60 years old female with history of COPD, asthma and hypertension. Patient presented to the ER complaining of chills, of shortness of breath, loss of taste and smell since yesterday. Patient denied any chest pain. Patient stated that she has been taking her albuterol with no improvement. Patient denied any abdominal pain, nausea or vomiting. Patient received albuterol, Atrovent and Decadron. Labs reviewed and is unremarkable. Chest x-ray is negative for acute finding. CTA showed no evidence of pulmonary embolism. COVID-19 test has been ordered. I discussed the patient with Dr. Bolton, he agreed to admit the patient to medical service for further management. Critical care attestation.: If time is entered above; I have spent that time in minutes in the direct care of this critically ill patient, excluding procedure time. ED Disposition Clinical Impression: COPD exacerbation, Suspected COVID-19 virus infection Disposition: OP ADMIT IP TO THIS HOSP Is pt being admited?: Yes Condition: Stable Instructions: Chronic Obstructive Pulmonary Disease (ED) Referrals: EDUARD MOCTEZUMA MD [Primary Care Provider] - 3-5 Days
--- NOTE | 2020-11-27 00:04 | Cat Scan Report ---
CTA CHEST HISTORY: Chest Pain. COMPARISON: 04/23/2019. TECHNIQUE: Routine chest CT angiogram performed utilizing intravenous contrast. MIP/3D reformats wer e post-processed. CONTRAST: 100 ml of Omnipaque 350 FINDINGS: Heart and Pericardium: No significant abnormality. Pulmonary Arteries: Diagnostic pulmonary artery opacification. No significant respiratory motion. No pulmonary emboli seen. Thoracic Aorta: Normal in caliber. No dissection flap Lymphatics: No lymphadenopathy by size criteria. Lungs: No significant abnormality. Trachea and Bronchi: Bronchial thickening is localized bronchiectasis at the right upper lobe. Osseous Structures: No significant abnormality. Additional Findings: Fatty liver. Scarring upper pole right kidney. IMPRESSION: 1. Overall diagnostic examination. Negative for pulmonary embolism. 2. Negative for thoracic aortic dissection or thoracic aortic aneurysm. 3. Negative for pulmonary edema or pneumonia. 4. Bronchial thickening with localized bronchiectasis right upper lobe. Signer Name: Mundo Feliciano MD Signed: 11/27/2020 12:00 AM Workstation Name: [id number]
[2020-11-27] MEDS ORDERED: ALBUTEROL 2.5 MG/3 ML NEBU IH ONE (00:50)
[2020-11-27] MEDS ORDERED: ACETAMINOPHEN 325 MG TAB PO PRN (01:47)
[2020-11-27] MEDS ORDERED: ONDANSETRON 4 MG/2 ML INJ IV PRN (01:48)
[2020-11-27 05:13] LABS: C-Reactive Protein 1.8 mg/dL (0.00-1.30)
--- NOTE | 2020-11-27 05:41 | History and Physical Report ---
History of Present Illness Date of examination: 11/27/20 Date of admission: 11/27/20 00:51 Chief complaint: Chief complaint is shortness of breath, other complaint include wheezing, chills, loss of smell and taste. History of present illness: History of presenting illness, patient is a 60-year-old female who has been having symptoms of shortness of breath associated with wheezing chills and loss of taste and smell since yesterday. She has no history of chest pain, nausea or vomiting, cough,fever or body ache, patient says she has been taking her albuterol treatments without improvement of symptoms and she decided to come to the emergency room Past History Past Medical History: COPD, GERD, hypertension, other (DEPRESSION, ASTHMA,ALCOHOLISM) Past Surgical History: Other (TUBAL LIGATION) Social history: smoking, alcohol abuse, other (COCAINE USE) Family history: no significant family history Medications and Allergies Allergies Allergy/AdvReac Type Severity Reaction Status Date / Time No Known Allergies Allergy Verified 12/12/15 13:42 Home Medications Medication Instructions Recorded Confirmed Last Taken Type Cyclobenzaprine [Flexeril 10 MG 10 mg PO TID PRN #30 tablet 10/16/15 09/14/19 Unknown Rx TAB] traMADoL [Ultram 50 MG tab] 50 mg PO Q6HR PRN #20 tablet 12/12/15 09/14/19 Unknown Rx Albuterol Sulfate [Albuterol 0.63% 0.63 mg IH Q4HR PRN #2 ml 05/29/16 09/14/19 Unknown Rx NEBS] Ipratropium [place] [Atrovent Hfa] 12.9 gm IH Q4HR #2 hfa.aer.ad 05/29/16 09/14/19 Unknown Rx Quetiapine Fumarate [SEROquel] 300 mg PO HS 09/16/19 09/16/19 Unknown History Acetaminophen [Acetaminophen TAB] 2 tab PO Q4H PRN #15 tablet 09/17/19 Unknown Rx Albuterol Sulfate [Proair 90 mcg IH Q4HR PRN #2 aer.pow.ba 09/17/19 Unknown Rx Respiclick] Ipratropium [Atrovent NEB] 0.5 mg IH Q4HR PRN #2 ml 09/17/19 09/14/19 Unknown Rx Lispro Insulin [HumaLOG] 0 unit SUB-Q ACHS units 09/17/19 Unknown Rx cefUROXime [Ceftin] 2 tab PO BID #20 tablet 09/17/19 Unknown Rx predniSONE 1 dose PO DAILY #36 tab 09/17/19 Unknown Rx Active Meds: Active Medications Acetaminophen (Acetaminophen 325 Mg Tab) 650 mg PO Q4H PRN PRN Reason: Fever >101 Albuterol/Ipratropium (Ipratropium/Albuterol Sulfate 3 Ml Ampul.Neb) 1 ampul IH QIDRT SHANTI Levofloxacin/Dextrose (Levaquin 750mg/150ml) 750 mg in 150 mls @ 100 mls/hr IV Q24HR SHANTI; Protocol Last Admin: 11/27/20 02:41 Dose: 100 mls/hr Documented by: Methylprednisolone Sodium Succinate (Methylprednisolone Sod Succinate 40 Mg/1 Ml Inj) 60 mg IV Q8HR SHANTI Ondansetron HCl (Ondansetron 4 Mg/2 Ml Inj) 4 mg IV Q8H PRN PRN Reason: Nausea And Vomiting Review of Systems Constitutional: chills, malaise, no fever, no sweats, no anorexia, no fatigue, no weakness Eyes: bilateral: other (NO BILATERAL EYE SYMPTOMS) Ears, nose, mouth and throat: no ear pain Breasts: deferred Cardiovascular: shortness of breath, no chest pain, no orthopnea, no palpitations, no rapid/irregular heart beat, no syncope, no lightheadedness Respiratory: shortness of breath, no cough, no dyspnea on exertion, no con gestion, no wheezing, no pleurisy Gastrointestinal: no abdominal pain, no nausea, no vomiting, no diarrhea, no heartburn Menstruation: postmenopausal Rectal: no pain Musculoskeletal: no neck stiffness, no neck pain, no low back pain Integumentary: no rash, no pruritis, no redness, no jaundice, no boils Neurological: no weakness, no parathesias, no seizures, no syncope, no tremors, no ataxia, no vertigo, no headaches, no change in mentation, no confusion Psychiatric: depression, no anxiety, no insomnia Endocrine: no polyphagia, no polydipsia, no polyuria, no nocturia Hematologic/Lymphatic: no easy bruising Exam - Constitutional Vitals: Temp Pulse Resp BP Pulse Ox 98.1 F 101 H 16 137/69 92 11/27/20 05:03 11/27/20 05:03 11/27/20 05:03 11/27/20 05:03 11/27/20 05:03 General appearance: Present: no acute distress - EENT Eyes: Present: PERRL, EOM intact ENT: hearing intact, clear oral mucosa, dentition normal - Neck Neck: Present: supple, normal ROM - Respiratory Respiratory effort: normal - Cardiovascular Rhythm: regular Heart Sounds: Present: S1 & S2. Absent: gallop, systolic murmur, diastolic murmur, click - Extremities Extremities: no ischemia, No edema Peripheral Pulses: within normal limits - Abdominal General gastrointestinal: Present: soft, non-tender, non-distended. Absent: tender, distended, hepatomegaly, splenomegaly Female genitourinary: Present: deferred - Rectal Rectal Exam: deferred - Integumentary Integumentary: Present: clear, warm, dry - Musculoskeletal Musculoskeletal: generalized weakness HEART Score - HEART Score Risk factors: 1-2 risk factors Troponin: Troponin T < 0.010 ng/mL (0.00-0.029) 11/26/20 13:45 Troponin: < normal limit - Critical Actions Critical Actions: 0-3 pts:0.9-1.7%risk of adverse cardiac event.Candidate for discharge Results - Labs CBC & Chem 7: 11/26/20 13:45 11/27/20 00:55 Labs: Laboratory Last Values WBC 9.0 K/mm3 (4.5-11.0) 11/26/20 13:45 RBC 5.15 M/mm3 (3.65-5.03) H 11/26/20 13:45 Hgb 16.1 gm/dl (10.1-14.3) H 11/26/20 13:45 Hct 46.9 % (30.3-42.9) H 11/26/20 13:45 MCV 91 fl (79-97) 11/26/20 13:45 MCH 31 pg (28-32) 11/26/20 13:45 MCHC 34 % (30-34) 11/26/20 13:45 RDW 14.7 % (13.2-15.2) 11/26/20 13:45 Plt Count 207 K/mm3 (140-440) 11/26/20 13:45 Lymph % (Auto) 18.3 % (13.4-35.0) 11/26/20 13:45 Carbon % (Auto) 11.7 % (0.0-7.3) H 11/26/20 13:45 Eos % (Auto) 2.5 % (0.0-4.3) 11/26/20 13:45 Baso % (Auto) 0.4 % (0.0-1.8) 11/26/20 13:45 Lymph # (Auto) 1.6 K/mm3 (1.2-5.4) 11/26/20 13:45 Carbon # (Auto) 1.1 K/mm3 (0.0-0.8) H 11/26/20 13:45 Eos # (Auto) 0.2 K/mm3 (0.0-0.4) 11/26/20 13:45 Baso # (Auto) 0.0 K/mm3 (0.0-0.1) 11/26/20 13:45 Seg Neutrophils % 67.1 % (40.0-70.0) 11/26/20 13:45 Seg Neutrophils # 6.0 K/mm3 (1.8-7.7) 11/26/20 13:45 D-Dimer 209.48 ng/mlDDU (0-234) 11/27/20 00:55 Sodium 142 mmol/L (137-145) 11/26/20 13:45 Potassium 4.9 mmol/L (3.6-5.0) 11/26/20 13:45 Chloride 104.2 mmol/L (98-107) 11/26/20 13:45 Carbon Dioxide 25 mmol/L (22-30) 11/26/20 13:45 Anion Gap 18 mmol/L 11/26/20 13:45 BUN 10 mg/dL (7-17) 11/26/20 13:45 Creatinine 0.9 mg/dL (0.6-1.2) 11/26/20 13:45 Estimated GFR > 60 ml/min 11/26/20 13:45 BUN/Creatinine Ratio 11 % 11/26/20 13:45 Glucose 117 mg/dL (65-100) H 11/27/20 00:55 Calcium 9.9 mg/dL (8.4-10.2) 11/26/20 13:45 Magnesium 2.00 mg/dL (1.7-2.3) 11/26/20 13:45 Ferritin 411.1 ng/mL (10.0-200.0) H 11/27/20 00:55 Total Bilirubin 0.30 mg/dL (0.1-1.2) 11/26/20 13:45 AST 71 units/L (5-40) H 11/26/20 13:45 ALT 82 units/L (7-56) H 11/26/20 13:45 Alkaline Phosphatase 67 units/L (35-129) 11/26/20 13:45 Lactate Dehydrogenase 214 units/L (91-180) H 11/27/20 00:55 Troponin T < 0.010 ng/mL (0.00-0.029) 11/26/20 13:45 C-Reactive Protein 1.80 mg/dL (0.00-1.30) H 11/27/20 00:55 NT-Pro-B Natriuret Pep 27.65 pg/mL (0-900) 11/26/20 13:45 Total Protein 7.6 g/dL (6.3-8.2) 11/26/20 13:45 Albumin 4.6 g/dL (3.9-5) 11/26/20 13:45 Albumin/Globulin Ratio 1.5 % 11/26/20 13:45 Assessment and Plan - Patient Problems (1) COPD exacerbation Current Visit: Yes Status: Acute Plan to address problem: 1. I.V SOLUMEDROL 2. DUONEBULIZER 3. I.V LEVAQUIN ANTIBIOTIC (2) Suspected COVID-19 virus infection Current Visit: Yes Status: Acute Plan to address problem: 1. COVID -19 PCR TEST 2. DROPLET/CONTACT/AIRBORNE ISOLATION
[2020-11-27] MEDS: methylPREDNISolone Sod Succinate 40 MG/1 ML INJ IV SCH ×3 (06:22→21:00)
[2020-11-27] MEDS ORDERED: IPRATROPIUM/ALBUTEROL SULFATE 3 ML AMPUL.NEB IH SCH (08:00)
[2020-11-27] MEDS ORDERED: CYCLOBENZAPRINE 10 MG TAB PO PRN (09:34)
[2020-11-27] MEDS ORDERED: traMADol 50 MG TAB PO PRN (09:34)
[2020-11-27] MEDS: guaiFENesin ER 600 MG TAB PO SCH ×3 (11:18→22:50)
[2020-11-27] MEDS: guaiFENesin 100 MG/5 ML ORAL LIQD PO PRN (11:18)
[2020-11-27] MEDS: INSULIN LISPRO 100 UNIT/ML SUB-Q SCH ×3 (11:30→22:47)
--- NOTE | 2020-11-27 11:32 | Event Note ---
Date: 11/27/20 Patient seen and examined This is the second visit after midnight patient is a 60-year-old female presented with shortness of breath associated wi th wheezing chills and loss of taste and smell Ordered for COVID test - pending
[2020-11-27 12:02] LABS: Bilirubin,Urine NEG (Negative); Blood,Urine NEG (Negative); Color,Urine Yellow (Yellow); Protein,Urine <15 mg/dL mg/dL (Negative); RBC,Urine < 1.0 /HPF (0.0-6.0); Urobilinogen,Urine < 2.0 mg/dL (<2.0); WBC,Urine < 1.0 /HPF (0.0-6.0)
[2020-11-27] MEDS: IPRATROPIUM/ALBUTEROL SULFATE 3 ML AMPUL.NEB IH SCH (21:44)
[2020-11-27] MEDS ORDERED: NON-FORMULARY EACH (Quetiapine Fumarate [Seroquel] 300 MG Tablet) PO SCH (22:00)
[2020-11-27] MEDS ORDERED: QUEtiapine 100 MG TAB PO SCH (22:00)
[2020-11-28] MEDS: methylPREDNISolone Sod Succinate 40 MG/1 ML INJ IV SCH ×2 (05:39→20:06)
[2020-11-28] MEDS: INSULIN LISPRO 100 UNIT/ML SUB-Q SCH ×3 (07:30→16:30)
[2020-11-28] MEDS: IPRATROPIUM/ALBUTEROL SULFATE 3 ML AMPUL.NEB IH SCH ×3 (08:42→14:45)
--- NOTE | 2020-11-28 10:25 | Discharge Summary ---
Providers - Providers Date of Admission: 11/27/20 00:51 Date of discharge: 11/28/20 Attending physician: WILFRIDO COTTRELL Primary care [facility]: [facility] Hospitalization Condition: Stable Disposition: DC-01 TO HOME OR SELFCARE Time spent for discharge: 34 minutes Core Measure Documentation - Palliative Care Palliative Care/ Comfort Measures: Not Applicable - Core Measures Any of the following diagnoses?: none Exam - Constitutional Vitals: Temp Pulse Resp BP Pulse Ox 97.6 F 88 16 137/85 99 11/28/20 04:35 11/28/20 08:43 11/28/20 08:43 11/28/20 04:35 11/28/20 05:38 Plan Activity: advance as tolerated Weight Bearing Status: Weight Bear as Tolerated Diet: low fat, low salt Follow up with: MARY DEETRASKWOOD MD CORINNE [Primary Care Provider] - 3-5 Days HECTOR ALDRIDGE MD [Staff Physician] - 7 Days Prescriptions: guaiFENesin ER [Mucinex ER] 600 mg PO BID #10 tablet Prednisone [predniSONE 5 mg (6-Day Pack, 21 Tabs)] 5 mg PO .TAPER #1 tab.ds.pk Albuterol Sulfate [Proair Respiclick] 90 mcg IH Q4HR PRN #2 aer.pow.ba PRN Reason: Wheezing Azithromycin [Zithromax] 250 mg PO DAILY #3 tablet
[2020-11-28] MEDS: guaiFENesin ER 600 MG TAB PO SCH (11:25)
[2020-11-28] MEDS: guaiFENesin 100 MG/5 ML ORAL LIQD PO PRN (11:25)
[2020-11-28 16:45] VITALS: BP 158/80
== END 2020-11-28 18:00 | disposition home or self-care (01) | DRG 192 ==
LOC: ED 12:42 → 3A 11-27 00:51
PROVIDERS: ADMIT Internal Medicine; ATTEND Internal Medicine
DX: J44.1 Chronic obstructive pulmonary disease with (acute) exacerbation (principal); I10 Essential (primary) hypertension; F32.9 Major depressive disorder, single episode, unspecified; K21.9 Gastro-esophageal reflux disease without esophagitis; Z99.81 Dependence on supplemental oxygen; Z20.822 Contact with and (suspected) exposure to COVID-19; Z79.899 Other long term (current) drug therapy
CPT/HCPCS: 36415; 71045; 71275; 80053; 81001; 82728; 82947; 82962; 83615; 83735; 83880; 84145; 84484; 85025; 85379; 86140; 93005; 94640; 96365; 96375; G0378; J1100; J1815; J1956; J2920; Q9967; U0003

== ENCOUNTER 2021-01-22 21:02 | Emergency (ER) | payer SELFPAY ==
[2021-01-22 21:57] VITALS: BP 159/93
[2021-01-22] MEDS ORDERED: dexAMETHasone 20 MG/5 ML VIAL IM ONE (22:03)
[2021-01-22] MEDS ORDERED: IPRATROPIUM 0.02% NEBU 2.5 ML IH ONE (22:03)
[2021-01-22] MEDS ORDERED: ALBUTEROL 2.5 MG/3 ML NEBU IH ONE (22:03)
--- NOTE | 2021-01-22 22:11 | Emergency Department Report ---
ED Shortness of Breath HPI - General Chief Complaint: Dyspnea/Respdistress Stated Complaint: SOB/WHEEZING Time Seen by Provider: 01/22/21 22:01 Source: patient Mode of arrival: Ambulatory Limitations: No Limitations - History of Present Illness Initial Comments: Patient is a 60-year-old female who presents emergency room complaints of COPD/asthma exacerbation that began today. She states she has been using her treatments every 4 hours without much relief. She has associated shortness of breath, wheezing, chest tightness, occasional cough. She denies any fever, nausea, vomiting, diarrhea, leg swelling. She states that she uses nebulizer treatments and Advair at home. She states that she is out of her albuterol inhaler. Patient states that she is also out of her amlodipine for her high blood pressure. She states that she goes to [facility]. No allergies to medications. - Related Data Home Medications Medication Instructions Recorded Confirmed Last Taken Quetiapine Fumarate [SEROquel] 300 mg PO HS 09/16/19 09/16/19 Unknown Previous Rx's Medication Instructions Recorded Last Taken Type Cyclobenzaprine [Flexeril 10 MG 10 mg PO TID PRN #30 tablet 10/16/15 Unknown Rx TAB] traMADoL [Ultram 50 MG tab] 50 mg PO Q6HR PRN #20 tablet 12/12/15 Unknown Rx Lispro Insulin [HumaLOG] 0 unit SUB-Q ACHS units 09/17/19 Unknown Rx Albuterol Sulfate [Proair 90 mcg IH Q4HR PRN #2 aer.pow.ba 11/28/20 Unknown Rx Respiclick] Azithromycin [Zithromax] 250 mg PO DAILY #3 tablet 11/28/20 Unknown Rx Prednisone [predniSONE 5 mg (6-Day 5 mg PO .TAPER #1 tab.ds.pk 11/28/20 Unknown Rx Pack, 21 Tabs)] guaiFENesin ER [Mucinex ER] 600 mg PO BID #10 tablet 11/28/20 Unknown Rx Albuterol Sulfate [Proventil Hfa] 1 inhalation IH TID PRN #1 01/22/21 Unknown Rx hfa.aer.ad amLODIPine 5 mg PO DAILY #30 tab 01/22/21 Unknown Rx predniSONE [Deltasone] 40 mg PO QDAY 5 Days #10 tab 01/22/21 Unknown Rx Allergies Allergy/AdvReac Type Severity Reaction Status Date / Time No Known Allergies Allergy Verified 12/12/15 13:42 ED Review of Systems ROS: Stated complaint: SOB/WHEEZING Other details as noted in HPI Comment: All other systems reviewed and negative ED Past Medical Hx - Past Medical History Previous Medical History?: Yes Hx Hypertension: Yes Hx Congestive Heart Failure: No Hx Diabetes: Yes Hx GERD: Yes Hx Sickle Cell Disease: No Hx Psychiatric Treatment: Yes Hx Asthma: Yes Hx COPD: Yes Hx HIV: No Additional medical history: Alcoholism,depression - Surgical History Past Surgical History?: Yes Additional Surgical History: tubal ligation/ bunion - Social History Smoking Status: Current Every Day Smoker Substance Use Type: Alcohol - Medications Home Medications: Home Medications Medication Instructions Recorded Confirmed Last Taken Type Cyclobenzaprine [Flexeril 10 MG 10 mg PO TID PRN #30 tablet 10/16/15 09/14/19 Unknown Rx TAB] traMADoL [Ultram 50 MG tab] 50 mg PO Q6HR PRN #20 tablet 12/12/15 09/14/19 Unknown Rx Quetiapine Fumarate [SEROquel] 300 mg PO HS 09/16/19 09/16/19 Unknown History Lispro Insulin [HumaLOG] 0 unit SUB-Q ACHS units 09/17/19 Unknown Rx Albuterol Sulfate [Proair 90 mcg IH Q4HR PRN #2 aer.pow.ba 11/28/20 Unknown Rx Respiclick] Azithromycin [Zithromax] 250 mg PO DAILY #3 tablet 11/28/20 Unknown Rx Prednisone [predniSONE 5 mg (6-Day 5 mg PO .TAPER #1 tab.ds.pk 11/28/20 Unknown Rx Pack, 21 Tabs)] guaiFENesin ER [Mucinex ER] 600 mg PO BID #10 tablet 11/28/20 Unknown Rx Albuterol Sulfate [Proventil Hfa] 1 inhalation IH TID PRN #1 01/22/21 Unknown Rx hfa.aer.ad amLODIPine 5 mg PO DAILY #30 tab 01/22/21 Unknown Rx predniSONE [Deltasone] 40 mg PO QDAY 5 Days #10 tab 01/22/21 Unknown Rx ED Physical Exam - General Limitations: No Limitations General appearance: alert, in no apparent distress - Head Head exam: Present: atraumatic, normocephalic - Eye Eye exam: Present: normal appearance - ENT ENT exam: Present: mucous membranes moist - Respiratory Respiratory exam: Present: wheezes, decreased breath sounds. Absent: respiratory distress, rales, rhonchi, stridor, chest wall tenderness, accessory muscle use - Cardiovascular Cardiovascular Exam: Present: regular rate, normal rhythm, normal heart sounds. Absent: systolic murmur, diastolic murmur, rubs, gallop - Neurological Exam Neurological exam: Present: alert, oriented X3 - Psychiatric Psychiatric exam: Present: normal affect, normal mood - Skin Skin exam: Present: warm, dry, intact ED Course Vital Signs 01/22/21 01/22/21 21:37 23:50 Temperature 98.5 F Pulse Rate 103 H 97 H Respiratory 18 17 Rate Blood Pressure 159/93 O2 Sat by Pulse 98 99 Oximetry ED Medical Decision Making - Lab Data Vital Signs 01/22/21 01/22/21 21:37 23:50 Temperature 98.5 F Pulse Rate 103 H 97 H Respiratory 18 17 Rate Blood Pressure 159/93 O2 Sat by Pulse 98 99 Oximetry - Radiology Data Radiology results: report reviewed Ordering Physician: NICOLASA BOBBY Date of Service: 01/22/21 Procedure(s): XR chest routine 2V Accession Number(s): [id number] cc: NICOLASA BOBBY Fluoro Time In Minutes: CHEST 2 VIEWS INDICATION / CLINICAL INFORMATION: MAIN. COMPARISON: 11/26/2020 FINDINGS: SUPPORT DEVICES: None. HEART / MEDIASTINUM: No significant abnormality. LUNGS / PLEURA: No significant pulmonary or pleural abnormality. No pneumothorax. ADDITIONAL FINDINGS: No significant additional findings. IMPRESSION: 1. No acute findings. Signer Name: Paramjit Dawson MD Signed: 01/22/2021 10:32 PM Workstation Name: [id number] Transcribed By: Dictated By: PARAMJIT DAWSON III Electronically Authenticated By: PARAMJIT DAWSON III Signed Date/Time: 01/22/212231 DD/ 30 TD/TT: Print - Medical Decision Making Patient is a 60-year-old female who presents emergency room complaints of COPD/asthma exacerbation that began today. She states she has been using her treatments every 4 hours without much relief. She has associated shortness of breath, wheezing, chest tightness, occasional cough. She denies any fever, nausea, vomiting, diarrhea, leg swelling. She states that she uses nebulizer treatments and Advair at home. She states that she is out of her albuterol inhaler. Patient states that she is also out of her amlodipine for her high blood pressure. She states that she goes to [facility]. No allergies to medications. Vitals with tachycardia which improved upon repeat. On exam patient has wheezing bilaterally and decreased breath sounds bilaterally. Chest x-ray:1. No acute findings. Patient given neb treatment and IM steroids. On reexamination patient has good air movement and wheezing has significantly improved. Patient is feeling much better and ready to go home. Patient given refill of her medications and placed on steroids. Advised patient Please take medication as prescribed. Please do your breathing treatments every 4-6 hours as needed. Follow-up with your primary care doctor. Return to emergency room for any new or worsening symptoms. Critical care attestation.: If time is entered above; I have spent that time in minutes in the direct care of this critically ill patient, excluding procedure time. ED Disposition Clinical Impression: COPD exacerbation, Tobacco abuse Disposition: TO HOME OR SELFCARE Is pt being admited?: No Does the pt Need Aspirin: No Condition: Stable Instructions: Health Risks of Smoking, Chronic Obstructive Pulmonary Disease, Steps to Quit Smoking, Chronic Obstructive Pulmonary Disease (ED) Additional Instructions: Please take medication as prescribed. Please do your breathing treatments every 4-6 hours as needed. Follow-up with your primary care doctor. Return to emergency room for any new or worsening symptoms. Prescriptions: amLODIPine 5 mg PO DAILY #30 tab predniSONE [Deltasone] 40 mg PO QDAY 5 Days #10 tab Albuterol Sulfate [Proventil Hfa] 1 inhalation IH TID PRN #1 hfa.aer.ad PRN Reason: shortness of breath/wheezing Referrals: [facility] [Provider Group] - 2-3 Days Forms: Work/School Release Form(ED) Time of Disposition: 23:35 Print Language: ROMANIAN
--- NOTE | 2021-01-22 22:36 | XRay Report ---
CHEST 2 VIEWS INDICATION / CLINICAL INFORMATION: MAIN. COMPARISON: 11/26/2020 FINDINGS: SUPPORT DEVICES: None. HEART / MEDIASTINUM: No significant abnormality. LUNGS / PLEURA: No significant pulmonary or pleural abnormality. No pneumothorax. ADDITIONAL FINDINGS: No significant additional findings. IMPRESSION: 1. No acute findings. Signer Name: Paramjit Dawson MD Signed: 01/22/2021 10:32 PM Workstation Name: [id number]
== END 2021-01-22 23:50 | disposition home or self-care (01) ==
LOC: ED 21:02
DX: J44.1 Chronic obstructive pulmonary disease with (acute) exacerbation (principal); F11.10 Opioid abuse, uncomplicated; I10 Essential (primary) hypertension; E11.9 Type 2 diabetes mellitus without complications; K21.9 Gastro-esophageal reflux disease without esophagitis; Z79.899 Other long term (current) drug therapy
CPT/HCPCS: 71046; 94640; 96372; 99283; J1100

== ENCOUNTER 2021-01-24 22:33 | Emergency (ER) | payer SELFPAY ==
[2021-01-24 23:12] VITALS: BP 155/86
--- NOTE | 2021-01-24 23:37 | XRay Report ---
CHEST 2 VIEWS INDICATION: Dyspnea. COMPARISON: 01/22/2021 FINDINGS: Support devices: None. Heart: Within normal limits. Lungs/Pleura: No acute air space or interstitial disease. No significant pleural effusion. IMPRESSION: No acute findings. Signer Name: Mundo Feliciano MD Signed: 01/24/2021 11:33 PM Workstation Name: [id number]
[2021-01-24] MEDS ORDERED: IPRATROPIUM 0.02% NEBU 2.5 ML IH ONE (23:53)
[2021-01-24] MEDS ORDERED: ALBUTEROL 2.5 MG/3 ML NEBU IH ONE (23:53)
[2021-01-24] MEDS ORDERED: methylPREDNISolone Sod Succinate 125 MG/2 ML INJ IM ONE (23:54)
--- NOTE | 2021-01-25 00:16 | Emergency Department Report ---
ED General Adult HPI - General Chief complaint: Dyspnea/Respdistress Stated complaint: SHORTNESS OF BREATH Time Seen by Provider: 01/24/21 23:54 Source: patient Mode of arrival: Ambulatory Limitations: No Limitations - History of Present Illness Initial comments: 60-year-old -Romanian female patient presents with complaints of continued wheezing and shortness of breath today. Patient was seen here 01/22/2021 for asthma and COPD exacerbation. Patient had a negative x-ray at the time and was given a continuous nebulizer treatment. She states she was feeling better at discharge and has not been able to fill her prescriptions for albuterol HFA and prednisone due to not having any money. She denies any hemoptysis, fever/chills/sweats, or chest pain. Patient states she is seeking a nebulizer treatment and will fill her medications upon discharge. She states she continues on Advair at home. - Related Data Home Medications Medication Instructions Recorded Confirmed Last Taken Quetiapine Fumarate [SEROquel] 300 mg PO HS 09/16/19 09/16/19 Unknown Previous Rx's Medication Instructions Recorded Last Taken Type Cyclobenzaprine [Flexeril 10 MG 10 mg PO TID PRN #30 tablet 10/16/15 Unknown Rx TAB] traMADoL [Ultram 50 MG tab] 50 mg PO Q6HR PRN #20 tablet 12/12/15 Unknown Rx Lispro Insulin [HumaLOG] 0 unit SUB-Q ACHS units 09/17/19 Unknown Rx Albuterol Sulfate [Proair 90 mcg IH Q4HR PRN #2 aer.pow.ba 11/28/20 Unknown Rx Respiclick] Azithromycin [Zithromax] 250 mg PO DAILY #3 tablet 11/28/20 Unknown Rx Prednisone [predniSONE 5 mg (6-Day 5 mg PO .TAPER #1 tab.ds.pk 11/28/20 Unknown Rx Pack, 21 Tabs)] guaiFENesin ER [Mucinex ER] 600 mg PO BID #10 tablet 11/28/20 Unknown Rx Albuterol Sulfate [Proventil Hfa] 1 inhalation IH TID PRN #1 01/22/21 Unknown Rx hfa.aer.ad amLODIPine 5 mg PO DAILY #30 tab 01/22/21 Unknown Rx predniSONE [Deltasone] 40 mg PO QDAY 5 Days #10 tab 01/22/21 Unknown Rx Allergies Allergy/AdvReac Type Severity Reaction Status Date / Time No Known Allergies Allergy Verified 12/12/15 13:42 ED Review of Systems ROS: Stated complaint: SHORTNESS OF BREATH Other details as noted in HPI Constitutional: denies: chills, diaphoresis, fever, malaise, weakness Respiratory: shortness of breath, wheezing. denies: cough Cardiovascular: denies: chest pain Gastrointestinal: denies: abdominal pain, nausea, vomiting Skin: denies: change in color ED Past Medical Hx - Past Medical History Hx Hypertension: Yes Hx Congestive Heart Failure: No Hx Diabetes: Yes Hx GERD: Yes Hx Sickle Cell Disease: No Hx Psychiatric Treatment: Yes Hx Asthma: Yes Hx COPD: Yes Hx HIV: No Additional medical history: Alcoholism,depression - Surgical History Additional Surgical History: tubal ligation/ bunion - Social History Smoking Status: Current Every Day Smoker Substance Use Type: Alcohol - Medications Home Medications: Home Medications Medication Instructions Recorded Confirmed Last Taken Type Cyclobenzaprine [Flexeril 10 MG 10 mg PO TID PRN #30 tablet 10/16/15 09/14/19 Un known Rx TAB] traMADoL [Ultram 50 MG tab] 50 mg PO Q6HR PRN #20 tablet 12/12/15 09/14/19 Unknown Rx Quetiapine Fumarate [SEROquel] 300 mg PO HS 09/16/19 09/16/19 Unknown History Lispro Insulin [HumaLOG] 0 unit SUB-Q ACHS units 09/17/19 Unknown Rx Albuterol Sulfate [Proair 90 mcg IH Q4HR PRN #2 aer.pow.ba 11/28/20 Unknown Rx Respiclick] Azithromycin [Zithromax] 250 mg PO DAILY #3 tablet 11/28/20 Unknown Rx Prednisone [predniSONE 5 mg (6-Day 5 mg PO .TAPER #1 tab.ds.pk 11/28/20 Unknown Rx Pack, 21 Tabs)] guaiFENesin ER [Mucinex ER] 600 mg PO BID #10 tablet 11/28/20 Unknown Rx Albuterol Sulfate [Proventil Hfa] 1 inhalation IH TID PRN #1 01/22/21 Unknown Rx hfa.aer.ad amLODIPine 5 mg PO DAILY #30 tab 01/22/21 Unknown Rx predniSONE [Deltasone] 40 mg PO QDAY 5 Days #10 tab 01/22/21 Unknown Rx ED Physical Exam - General Limitations: No Limitations General appearance: alert, in no apparent distress - Head Head exam: Present: atraumatic, normocephalic - Eye Eye exam: Present: normal appearance - ENT ENT exam: Present: normal exam - Respiratory Respiratory exam: Present: normal lung sounds bilaterally, wheezes, rhonchi. Absent: respiratory distress, rales, chest wall tenderness, accessory muscle use - Cardiovascular Cardiovascular Exam: Present: regular rate, normal rhythm. Absent: systolic murmur, diastolic murmur, rubs, gallop - GI/Abdominal GI/Abdominal exam: Present: soft - Back Exam Back exam: Present: full ROM - Neurological Exam Neurological exam: Present: alert, oriented X3, normal gait - Psychiatric Psychiatric exam: Present: normal affect, normal mood - Skin Skin exam: Present: warm, dry, intact, normal color. Absent: rash ED Course Vital Signs 01/24/21 01/25/21 23:07 00:43 Temperature 98.4 F Pulse Rate 97 H Pulse Rate [ 96 H Bilateral Throughout] Respiratory 18 Rate Respiratory 20 Rate [Bilateral Throughout] Blood Pressure 155/86 O2 Sat by Pulse 96 Oximetry ED Medical Decision Making - Radiology Data Radiology results: report reviewed CHEST 2 VIEWS INDICATION: Dyspnea. COMPARISON: 01/22/2021 FINDINGS: Support devices: None. Heart: Within normal limits. Lungs/Pleura: No acute air space or interstitial disease. No significant pleural effusion. IMPRESSION: No acute findings. - Medical Decision Making 60-year-old -Romanian female patient presents with complaints of continued wheezing and shortness of breath today. Patient was seen here 01/22/2021 for asthma and COPD exacerbation. Patient had a negative x-ray at the time and was given a continuous nebulizer treatment. She states she was feeling better at discharge and has not been able to fill her prescriptions for albuterol HFA and prednisone due to not having any money. She denies any hemoptysis, fever/chills/sweats, or chest pain. Patient states she is seeking a nebulizer treatment and will fill her medications upon discharge. She states she continues on Advair at home. Patient given continuous DuoNeb and states she is feeling much better post neb treatment. Wheezing significantly improved post treatment. Her vitals are normal, she is well-appearing, she is stable for discharge home. Patient to follow-up with primary care in 3 days. Strict return precautions discussed in detail with patient who verbalizes understanding. Critical care attestation.: If time is entered above; I have spent that time in minutes in the direct care of this critically ill patient, excluding procedure time. ED Disposition Clinical Impression: Asthma exacerbation in COPD Disposition: DC-01 TO HOME OR SELFCARE Is pt being admited?: No Condition: Stable Instructions: Asthma, Adult, Chronic Obstructive Pulmonary Disease, Asthma (ED) Referrals: [facility] [Provider Group] - 3-5 Days Forms: Work/School Release Form(ED)
== END 2021-01-25 01:15 | disposition home or self-care (01) ==
LOC: ED 22:33
DX: J44.9 Chronic obstructive pulmonary disease, unspecified (principal); I10 Essential (primary) hypertension; E11.9 Type 2 diabetes mellitus without complications; K21.9 Gastro-esophageal reflux disease without esophagitis; F32.9 Major depressive disorder, single episode, unspecified; F17.200 Nicotine dependence, unspecified, uncomplicated; Z98.51 Tubal ligation status; Z79.899 Other long term (current) drug therapy
CPT/HCPCS: 71046; 94640; 96372; 99283; J2930; 94644